=== PATIENT | female | born 1990 | race Caucasian/White ===

== ENCOUNTER → 2017-08-28 12:49 | Outpatient (CLI) | payer OTHER, SELFPAY ==
[2017-08-28 13:34] LABS: Basophils % 0.2 % (0.1-2.0); Eosinophils # 0.1 K/mm3 (0.0-0.4); Eosinophils % 0.8 % (0.1-12.0); Hematocrit 40.5 % (37.0-47.0); Hemoglobin 13.1 g/dL (12.2-16.2); Lymphocytes # 2.1 K/mm3 (0.7-4.5); Lymphocytes % 34.4 K/mm3 (10-50); Mean Corpuscular HGB Conc 32.3 g/dL (31.8-35.4); Mean Corpuscular Hemoglobin 30.7 pg (27.0-31.2); Mean Corpuscular Volume 95.1 fl (81-99); Mean Platelet Volume 8.3 fl (7.4-10.4); Monocytes # 0.2 K/mm3 (0.1-1.0); Monocytes % 3.7 % (1.7-9.3); Neutrophils # 3.8 K/mm3 (1.8-7.8); Neutrophils % 60.9 % (37.0-80.0); Platelet Count 189 K/mm3 (142-424); Red Blood Count 4.26 M/mm3 (4.20-5.40); Red Cell Distribution Width 14.1 % (11.5-17.5); White Blood Count 6.2 K/mm3 (4.8-10.8)
[2017-08-28 13:43] LABS: INR 0.97 (0.9-1.1); Prothrombin Time 10.5 seconds (9.4-11.8)
[2017-08-28 15:19] LABS: Amphetamine/Metha Screen,Urine Negative ng/mL (<1000); Barbiturates Screen,Urine Negative ng/mL (<200); Benzodiazepines Screen,Urine Negative ng/mL (200); Cannabinoid Screen,Urine Negative ng/mL (<50); Cocaine Screen,Urine Negative ng/g (<300); Methadone Screen,Urine Negative ng/mL (<300); Opiate Screen,Urine Negative ng/mL (<300); Phencyclidine Screen,Urine Negative ng/mL (<25)
[2017-08-28 15:25] LABS: Alanine Aminotransferase 282 U/L (12-78); Albumin Level 3.8 gm/dL (3.4-5.0); Alkaline Phosphatase 90 U/L (46-116); Aspartate Amino Transferase 170 U/L (15-37); Bilirubin,Total 0.4 mg/dL (0.2-1.0); Blood Urea Nitrogen 13 mg/dL (7-18); Calcium 8.6 mg/dL (8.5-10.1); Carbon Dioxide 31 mmol/L (21.0-32.0); Chloride 105 mmol/L (98-107); Creatinine,Serum 0.62 mg/dL (0.55-1.02); Estimated Glomerular Filt Rate 114 ml/min (>60); Ethyl Alcohol 0 mg/dL (0-99); GFR (African American) 138 ML/MIN (>60); Globulin 3.9 gm/dl (1.3-3.2); Glucose 103 mg/dL (74-106); Sodium 141 mmol/L (136-145); Total Protein,Serum 7.7 gm/dL (6.4-8.2)
[2017-08-29 08:23] LABS: HIV Screen 4th Generation wRfx Non Reactive (Non Reactive); Hepatitis B Surface Antigen Negative (Negative)
[2017-08-30 06:18] LABS: ALT (SGPT) P5P 250 IU/L (0-40); Alpha 2-Macroglobulins, Qn 257 mg/dL (110-276); Apolipoprotein A-1 199 mg/dL (116-209); Bilirubin, Total 0.3 mg/dL (0.0-1.2); GGT 47 IU/L (0-60); Haptoglobin 87 mg/dL (34-200); Necroinflammat Activity Grade A3-Severe activity (.); Necroinflammat Activity Score 0.82 (0.00-0.17)
[2017-08-31 10:52] LABS: Hep B Core Ab, Total Negative (Negative); Hepatitis B Surf Ab Quant <3.1 mIU/mL (Immunity>9.9)
== END ==
PROVIDERS: PCP Emergency Medicine; Visit Provider Nurse Practitioner
DX: B19.20 Unspecified viral hepatitis C without hepatic coma (principal)
CPT/HCPCS: 36415; 80053; 80305; 85025; 85610; 86703; 86704; 86706; 87340; 87522; G0432

== ENCOUNTER → 2021-07-27 11:33 | Outpatient (CLI) | payer MEDICAID, SELFPAY ==
[2021-07-27 12:13] LABS: Basophils # 0.1 K/mm3 (0-0.2); Eosinophils # 0.1 K/mm3 (0.0-0.4); Eosinophils % 0.7 % (0.1-12.0); Hematocrit 38.9 % (37.0-47.0); Hemoglobin 12.2 g/dL (12.2-16.2); Lymphocytes # 1.5 K/mm3 (0.7-4.5); Lymphocytes % 21.5 % (10-50); Mean Corpuscular HGB Conc 31.4 g/dL (31.8-35.4); Mean Corpuscular Volume 98.6 fl (81-99); Mean Platelet Volume 8.4 fl (7.4-10.4); Monocytes # 0.3 K/mm3 (0.1-1.0); Monocytes % 4.3 % (1.7-9.3); Neutrophils # 5.1 K/mm3 (1.8-7.8); Neutrophils % 72.4 % (37.0-80.0); Platelet Count 284 K/mm3 (142-424); Red Blood Count 3.94 M/mm3 (4.20-5.40); Red Cell Distribution Width 13.7 % (11.5-17.5); White Blood Count 7.1 K/mm3 (4.8-10.8)
[2021-07-27 12:33] LABS: Chloride 107 mmol/L (98-107); Potassium 4.3 mmoL/L (3.5-5.1); Sodium 141 mmol/L (136-145)
[2021-07-27 12:35] LABS: Alanine Aminotransferase 52 U/L (12-78); Alkaline Phosphatase 73 U/L (38-126); Anion Gap 11.3 mEq/L (5-15); Aspartate Amino Transferase 52 U/L (14-36); Bilirubin,Total 0.2 mg/dl (0.2-1.3); Blood Urea Nitrogen 14 mg/dl (7-17); Carbon Dioxide 27 mmol/L (22.0-30.0); Estimated Glomerular Filt Rate 73 ml/min (>60); GFR (African American) 88 ML/MIN (>60)
[2021-07-27 12:36] LABS: Albumin Level 4.2 g/dl (3.5-5.0); Albumin/Globulin Ratio 1.3 (1.1-1.8); Calcium 9.1 mg/dl (8.4-10.2); Globulin 3.2 g/dL (1.3-3.2); Glucose 85 mg/dl (74-100); Total Protein,Serum 7.4 g/dl (6.3-8.2)
[2021-07-27 12:52] LABS: Free T4 (Free Thyroxine) 1.05 ng/dl (0.78-2.19)
[2021-07-27 13:06] LABS: Thyroid Stimulating Hormone 0.28 uIU/mL (0.465-4.68)
[2021-07-27 13:09] LABS: HCG Qualitative, Serum Negative (Negative)
[2021-07-28 08:14] LABS: Hep A Ab, IgM Negative (Negative); Hepatitis B Core Antibody IgM Negative (Negative); Hepatitis B Surface Antigen Negative (Negative); Hepatitis C Antibody >11.0 s/co ratio (0.0-0.9); Thyroid Peroxidase Antibodies <8 IU/mL (0-34)
== END ==
PROVIDERS: PCP Internal Medicine Adolescent Medicine; Visit Provider Nurse Practitioner Family
DX: R22.1 Localized swelling, mass and lump, neck (principal); R76.8 Other specified abnormal immunological findings in serum; Z30.011 Encounter for initial prescription of contraceptive pills
CPT/HCPCS: 36415; 80053; 80074; 84439; 84443; 84703; 85025; 86376; 87522

== ENCOUNTER → 2021-08-01 15:16 | Outpatient (CLI) | payer OTHER, SELFPAY ==
--- NOTE | 2021-08-01 15:18 | US_ITS ---
FINAL REPORT CLINICAL HISTORY: NECK MASS FINDINGS: THYROID ULTRASOUND The right lobe of the thyroid measures 5.4 x 4.3 x 3.3 cm. The left lobe of the thyroid measures 4.9 x 2.1 x 1.4 cm. A dominant right thyroid nodule measures 4.0 x 3.0 x 2.6 cm is solid and isoechoic consistent with a TI-RADS 3. A 2nd right thyroid nodule measures 1.8 x 1.3 cm. The single left thyroid nodule is mixed cystic and solid with macrocalcifications and measures 3.8 x 1.4 x 1.3 cm consistent with a TI-RADS 3. IMPRESSION: Bilateral TI-RADS 3 nodules. Recommend ultrasound-guided FNA of each. Reviewed, Interpreted and Dictated by Jose Bansal MD Transcribed by Kalpesh Long Authenticated by Jose Bansal MD on 08/01/2021 04:58:20 PM [facility]
== END ==
PROVIDERS: PCP Internal Medicine Adolescent Medicine; Visit Provider Nurse Practitioner Family
DX: R22.1 Localized swelling, mass and lump, neck (principal)
CPT/HCPCS: 76536

== ENCOUNTER → 2021-08-17 07:44 | Outpatient (CLI) | payer OTHER, SELFPAY ==
--- NOTE | 2021-08-17 07:50 | US_ITS ---
FINAL REPORT CLINICAL HISTORY: THYROID NODULE-- bilat rt/lt fna gopi woodall FINDINGS: The skin of the neck was prepped and draped in the usual sterile fashion. The skin was anesthetized with 1% lidocaine without epinephrine. Utilizing ultrasound guidance, the right thyroid nodule was initially targeted. 3 biopsies were obtained of the large right thyroid nodule. Secondly, the left thyroid nodule was targeted. Again, 3 fine-needle biopsies were obtained of the left thyroid nodule. The patient tolerated the procedure well without complications. IMPRESSION: Ultrasound-guided fine-needle aspiration of bilateral thyroid nodules. Reviewed, Interpreted and Dictated by Alfred Garcia III, MD Transcribed by MARTA Morris Authenticated by Alfred Garcia III, MD on 08/17/2021 09:22:46 AM [facility]
== END ==
PROVIDERS: PCP Internal Medicine Adolescent Medicine; Visit Provider Nurse Practitioner Family
DX: E04.1 Nontoxic single thyroid nodule (principal)
CPT/HCPCS: 10005; 10006; 76536; 76942

== ENCOUNTER → 2021-11-16 10:54 | Outpatient (CLI) | payer OTHER, SELFPAY ==
--- NOTE | 2021-11-16 10:57 | US_ITS ---
FINAL REPORT CLINICAL HISTORY: .3 passes done per manny woodall sent with thyroseq for dr morales this was a repeat for atypical cells FINDINGS: Ultrasound guided thyroid biopsy. HISTORY: Right thyroid mass. PROCEDURE: After informed consent was obtained and a time-out was performed, the patient was prepped and draped in usual sterile fashion over the left neck. Utilizing local anesthesia and sterile technique with a 25-gauge needle, access to lesion was obtained. Three passes were made and placed in Thyroseq per Dr. Morales's orders. The patient tolerated procedure well and left the department in good condition. IMPRESSION: Status post ultrasound guided biopsy of thyroid without immediate complication. Films reviewed , interpreted and dictated by Dr. Garcia. Transcribed by Manny Martinez PA-C. Reviewed, Interpreted and Dictated by Alfred Garcia III, MD Transcribed by MARTA Felton Authenticated by Alfred Garcia III, MD on 11/18/2021 08:01:[address] [facility]
== END ==
PROVIDERS: PCP Internal Medicine Adolescent Medicine; Visit Provider Student in an Organized Health Care Education/Training Program
DX: E04.9 Nontoxic goiter, unspecified (principal)
CPT/HCPCS: 10005; 76536

== ENCOUNTER → 2021-12-12 15:47 | Outpatient (CLI) | payer OTHER, SELFPAY ==
[2021-12-12 17:39] LABS: Free T4 (Free Thyroxine) 1.08 ng/dl (0.78-2.19)
[2021-12-12 17:43] LABS: Thyroid Stimulating Hormone 0.11 uIU/mL (0.465-4.68)
== END ==
PROVIDERS: PCP Nurse Practitioner Family; Visit Provider Student in an Organized Health Care Education/Training Program
DX: E04.9 Nontoxic goiter, unspecified (principal); J34.89 Other specified disorders of nose and nasal sinuses
CPT/HCPCS: 36415; 84439; 84443

== ENCOUNTER → 2022-01-21 08:36 | Outpatient (CLI) | payer OTHER, SELFPAY ==
[2022-01-21 08:40] LABS: MANUAL DIFFERENTIAL MANUAL DIFFERENTIAL (MANUAL DIFF)
[2022-01-21 08:50] LABS: Basophils # 0.1 K/mm3 (0-0.2); Basophils % 1.1 % (0.1-2.0); Eosinophils % 0.4 % (0.1-12.0); Hematocrit 43.1 % (37.0-47.0); Hemoglobin 13.3 g/dL (12.2-16.2); Lymphocytes # 1.6 K/mm3 (0.7-4.5); Lymphocytes % 23.1 % (10-50); Mean Corpuscular Hemoglobin 30.9 pg (27.0-31.2); Mean Corpuscular Volume 99.8 fl (81-99); Mean Platelet Volume 8.5 fl (7.4-10.4); Monocytes # 0.3 K/mm3 (0.1-1.0); Monocytes % 3.8 % (1.7-9.3); Neutrophils # 5.1 K/mm3 (1.8-7.8); Neutrophils % 71.7 % (37.0-80.0); Platelet Count 275 K/mm3 (142-424); Red Blood Count 4.32 M/mm3 (4.20-5.40); Red Cell Distribution Width 12.6 % (11.5-17.5); White Blood Count 7.1 K/mm3 (4.8-10.8)
[2022-01-21 09:26] LABS: Chloride 103 mmol/L (98-107); Potassium 3.6 mmoL/L (3.5-5.1); Sodium 136 mmol/L (136-145)
[2022-01-21 09:29] LABS: Alanine Aminotransferase 47 U/L (12-78); Albumin/Globulin Ratio 1.1 (1.1-1.8); Alkaline Phosphatase 72 U/L (38-126); Anion Gap 9.6 mEq/L (5-15); Aspartate Amino Transferase 46 U/L (14-36); Bilirubin,Total 0.4 mg/dl (0.2-1.3); Blood Urea Nitrogen 9 mg/dl (7-17); Calcium 9.8 mg/dl (8.4-10.2); Carbon Dioxide 27 mmol/L (22.0-30.0); Estimated Glomerular Filt Rate 83 ml/min (>60); GFR (African American) 100 ML/MIN (>60); Globulin 3.5 g/dL (1.3-3.2); Glucose 93 mg/dl (74-100); Total Protein,Serum 7.5 g/dl (6.3-8.2)
[2022-01-21 09:43] LABS: Lymphocytes % 23 % (10-50); Monocytes % 6 % (2-9); Neutrophils % 71 % (42-76); Platelet Estimate Normal; RBC Morphology Normal; Total Cells Counted 100
[2022-01-23 10:56] LABS: HCG Qualitative, Serum Negative (Negative)
== END ==
PROVIDERS: PCP Nurse Practitioner Family; Visit Provider Student in an Organized Health Care Education/Training Program
DX: Z01.818 Encounter for other preprocedural examination (principal); Z20.822 Contact with and (suspected) exposure to COVID-19; E04.9 Nontoxic goiter, unspecified
CPT/HCPCS: 36415; 80053; 84703; 85007; 85014; 85018; 85048; 85049; C9803; U0003; U0005

== ENCOUNTER 2022-01-25 06:02 | Day surgery (SDC) | payer OTHER, SELFPAY ==
[2022-01-25] VITALS (12 sets, daily range): BP systolic 120–141; BP diastolic 75–90; PULSE 85–110; RESP 12–18; TEMP 36.2–38; O2SAT 96–100; BMI 26.7
--- NOTE | 2022-01-25 06:20 | ECG_ITS ---
APPROVED REPORT Exam: Resting ECG HR:78 bpm ECG Measurements Heart Rate 78 AXES OK 148 P 11 QRSd 80 QRS 71 QT 361 T 57 QTc 394 Conclusion SINUS RHYTHM NORMAL ECG UNCONFIRMED REPORT Electronically signed by : Harvinder Long MD 01/25/2022 17:27:10
--- NOTE | 2022-01-25 08:28 | HMH.ANESCL ---
[facility] Anesthesia Checklist - Structural Data Admitted From: Home Planned Operative Procedure/s: [place] thyroidectomy Consent for Planned Operative Procedure(s) Verified: Yes - Additional verifications Anesthesia Reactions: No Hx Blood Transfusions: No Blood Transfusion Reaction: No - Airway Assessment C-Spine Mobility Assessed: Yes TMJ Mobility Assessed: Yes Dentition: Poor Dentition - Neurological Assessment Level of Consciousness: Awake, Appropriate - Anesthesia Plan Anesthesia Risk discussed: Yes Anesthesia Plan: Verified ASA Class: II Anesthesia Type: General [facility] History I have reviewed the patient's past medical history: Yes Medical History: Denies:: Cancer, Diabetes Mellitus Type 1, Diabetes Mellitus Type 2, Internal Pacemaker, MRSA, Seizures *Have you ever received a pneumonia vaccine?: No *Have you received a flu vaccine this season?: No Other Medical History: Reports: Other (History of drug abuse). Denies: Blood Transfusion Reaction Anesthesia experience/problems:: none Other Surgeries: Yes: (x 2), Other. No: Pacemaker Amputation: No Fractures: No - *Social History Last grade of school completed: High school graduate Smoking Status: Current every day smoker Tobacco Type: cigarettes # Packs/Day (cigarettes): 1 Alcohol Intake: former Alcohol Intake Frequency:: other Substance Use Type: marijuana, heroin, methamphetamine *Occupational Status:: employed Housing: house *Travel in the last 8 weeks: None Family Hx:: Diabetes, Stroke
--- NOTE | 2022-01-25 10:22 | HMH.ANESI ---
[facility] Anesthesia Record Part I Intake, IV Amount: 1,600 Estimated blood loss (mL): 10 Urine output (mL): 0 Blood Pressure: 139/90 SaO2: 96 Pulse Rate: 100 Respiratory Rate: 12 Temperature: 98.6 F Patient is:: Awake, Stable Stable to PACU at:: 10:15
--- NOTE | 2022-01-25 10:22 | HMH.OPNOTE ---
Date of procedure: 01/25/22 Pre-op Diagnosis:: right thyroid nodule Post-op Diagnosis:: same Procedure performed:: right hemithyroidectomy Surgeon:: Ernie Morales MD Anesthesia: GETA Estimated blood loss (mL): 15 Operative findings:: right thyroid nodules Operative note:: The patient was brought to the OR, laid in the supine position, and general anesthesia with a Nims nerve monitoring endotracheal tube was induced. Nerve monitor was set up and confirmed to be working appropriately. Patient was prepped and draped in usual fashion. Lidocaine with epinephrine 1-100,000 was injected below the incision site. I dissected through the skin, subcutaneous tissues, and platysma. The strap muscles were identified at the midline raphae. The strap muscles were divided at the raphae. I then began to dissect the strap muscles off of the right side of the thyroid. I isolated the superior pedicle and was taken down with a harmonic. We then came inferiorly again freeing thyroid from the surrounding tissue and strap muscles. I then began to roll the thyroid in a lateral to medial fashion out of the patient's neck. The recurrent laryngeal nerve was identified and preserved during this process. I dissected through Chacko's ligament and dissected the lobe off the trachea. The thyroid was divided at the midline isthmus and then sent for permanent pathology. Patient's neck was then thoroughly irrigated out. Hemostasis was achieved with bipolar cautery. The recurrent laryngeal nerve stimulated both proximally and distally at the end of the case. 15 B[place]udian drain was fashioned in the patient's neck. The incision was then closed in 2 layers. They were then turned back over to anesthesia to be awoken and extubated. Condition: stable Disposition: PACU Complications:: none
--- NOTE | 2022-01-25 11:13 | PC.NURSE ---
Dr Morales at bedside 1059 to speak with pt and assess incision and drain. No further orders at this time.
--- NOTE | 2022-01-26 07:19 | HMH.ANESII ---
[facility] Anesthesia Record Part II Discharge Time: 10:45 Destination: Home PACU nurse assessment reviewed?: Yes Patient Condition:: Good Anesthesia Complications:: None Swallowing reflex intact?: Yes Cyanosis?: No Blood Pressure: 120/75 Pulse Rate: 98 Temperature: 98 F Mental Status: Alert & Oriented Pain level:: 2 Nausea and/or vomitting:: None Intake, IV Amount: 0
[2022-01-26 07:20] VITALS: BP 120/75; PULSE 98; TEMP 36.6
== END 2022-01-25 11:32 | disposition home or self-care (01) ==
LOC: OR 06:04
PROVIDERS: PCP Nurse Practitioner Family; Visit Provider Student in an Organized Health Care Education/Training Program
PROC: (CPT 60220; principal; 2022-01-25 07:30)
DX: C73 Malignant neoplasm of thyroid gland; E04.1 Nontoxic single thyroid nodule; Z72.0 Tobacco use
CPT/HCPCS: 60220; 93005; 96374; J2405

== ENCOUNTER 2022-01-26 16:33 | Outpatient (CLI) | payer OTHER, SELFPAY ==
--- NOTE | 2022-01-26 17:06 | PC.NURSE ---
1650- JAYA drain removed without difficulty from below thyroid excision site. approx 10ml in bulb. site covered with telfa/tegaderm dsg. Pt tolerated well.
== END 2022-01-26 17:18 | disposition home or self-care (01) ==
LOC: OBOUT 16:35
PROVIDERS: PCP Nurse Practitioner Family; Visit Provider Student in an Organized Health Care Education/Training Program
DX: Z48.03 Encounter for change or removal of drains (principal)
CPT/HCPCS: G0463

== ENCOUNTER 2022-02-13 14:37 | Emergency (ER) | payer OTHER, SELFPAY ==
[2022-02-13 15:20] VITALS: BP 132/82; PULSE 103; RESP 18; TEMP 36.8; O2SAT 100; BMI 23.6
--- NOTE | 2022-02-13 15:34 | HMH.EDUTC ---
[facility] Disposition Clinical Impression: Viral syndrome Disposition: Home, Self-Care Condition on Discharge: Good Instructions: DI for Viral Syndrome, DI for COVID-19 (Suspected or Confirmed ), Preventing the Spread of Coronavirus Discharge Instructions Additional Instructions: *Monitor Temp, Over the counter Motrin or Tylenol as directed/as needed Tylenol every 4 hours and Motrin every 6 hours (as long as your family doctor has told you that you can take it) for fever or pain. and straight to ER if unable to lower temp less than 101.0 after medication given *Warm salt water gargles may help to soothe the throat *Throat Lozenges *Warm fluids like tea with honey may help to soothe the throat *Sleep elevated *Humidifier/Vaporizer Follow up IMMEDIATELY for new or worsening symptoms or no Noticeable improvement over the next 48-72 hours. 911 for difficulty breathing or swallowing You were tested for today for COVID19 your test result should be back in the next 24-48 hours, you may Check your results on the [facility] My Health Portal Make sure to take your Vitamins Vit. C Vit D and Zinc if you can take them Referrals: Harvinder Long MD [Primary Care Provider] - As needed Forms: Work/School Release Time of Disposition: 15:40 Medical Decision Making - Siva Inquiry Pt receiving controlled substance: No Siva was queried for this patient: No Vital Signs: 02/13/22 15:20 Temperature 98.3 F Temperature Source Oral Pulse Rate [Right Brachial] 103 H Respiratory Rate 18 Blood Pressure [Right Arm] 132/82 Blood Pressure Mean [Right Arm] 98 Blood Pressure Source [Right Arm] Automatic Cuff Blood Pressure Position [Right Arm] Sitting 02 Sat by Pulse Oximetry 100 Oxygen Delivery Method Room Air Orders (Tests/Meds): ORDERS Category Date Time Status Covid-19 Nasal PCR ([facility]) Routine Lab 02/13/22 15:12 Ordered [facility] HPI - General Stated complaint: covid test Time Seen by Provider: 02/13/22 15:35 Mode of Arrival: Ambulatory Source of Information: Patient Limitations: No Limitations Description of Symptoms (Recalled from Triage Doc. by RN): PATIENT C/O FEVER, CHILLS, WEAKNESS, AND LOSS OF TASTE AND SMELL SINCE YESTERDAY HEENT Symptoms (Recalled from RN notes): Yes Resp Symptoms (Recalled from RN notes): No Skin Symptoms (Recalled from RN notes): No MS Symptoms (Recalled from RN notes): No Functional Status (Recalled from RN notes): WNL - History of Present Illness Provider Complaint: Patient states that she was recently around a coworker that she thinks may have been postive for COVID States that she has been having bodyache, chills, fatigue and her taste and smell has been off so today she came in wanting to get tested for COVID - Related Data Home Medications Medication Instructions Recorded Confirmed levonorgestrel-ethinyl estradiol 1 tab PO DAILY tab 10/26/21 02/13/22 0.1 mg-20 mcg tablet Allergies Allergy/AdvReac Type Severity Reaction Status Date / Time cefaclor [From [facility]] Allergy Unknown Verified 01/09/22 16:05 - Worker's Comp Is this a Worker's Comp case?: No [facility] History - Hepatitis A Screen Attestation statement:: This patient has been screened for Hepatitis A risk factors. I have reviewed the patient's past medical history: Yes Medical History: Denies:: Cancer, Diabetes Mellitus Type 1, Diabetes Mellitus Type 2, Internal Pacemaker, MRSA, Seizures Other Medical History: Reports: Other (History of drug abuse). Denies: Blood Transfusion Reaction Other Surgeries: Yes: (x 2), Other. No: Pacemaker Amputation: No Fractures: No Comment: Patient reports she is scheduled for thyroidectomy this month secondary to thyroid cancer - Social History Smoking Status: Current every day smoker Tobacco Type: cigarettes # Packs/Day (cigarettes): 1 Alcohol Intake: never Alcohol Intake Frequency:: other Substance Use Type: marijuana, heroin, methamphetamine Occupational S
[2022-02-13 15:40] VITALS: BP 132/82; PULSE 103; RESP 18; TEMP 36.8; O2SAT 100
== END 2022-02-13 15:45 | disposition home or self-care (01) ==
PROVIDERS: Emergency Provider Nurse Practitioner; PCP Internal Medicine Adolescent Medicine
DX: U07.1 COVID-19 (principal)
CPT/HCPCS: 99212; C9803; G0463; U0003; U0005

== ENCOUNTER 2023-07-19 06:50 | Emergency (ER) | payer OTHER, SELFPAY ==
--- NOTE | 2023-07-19 06:53 | HMH.EDGENADL ---
Discharge Plan Disposition Patient Disposition: Xfer Other Prescriptions Prescriptions: No Action nifedipine 30 mg tablet extended release 30 mg PO DAILY Qty: 30 0RF Referrals Follow up/Referrals: Harvinder Long MD [Primary Care Provider] - See instructions Clinical Impressions Clinical Impression: Methamphetamine use Preeclampsia Qualifiers: Trimester: third trimester Qualified Code(s): O14.93 - Unspecified pre-eclampsia, third trimester No care in current Qualifiers: Trimester: third trimester Qualified Code(s): O09.33 - Supervision of with insufficient care, third trimester Discharge ED Provider: Hayes Esparza General Adult HPI General Chief complaint: Medical Clearance Stated complaint: medical clearance Time Seen by Provider: 07/19/23 06:51 History of Present Illness HPI narrative: 32-year-old female presents in police custody for medical clearance. She reports that she is approximately 8 months , has not had any care. She uses meth and heroin frequently. She denies any current concerns such as abdominal pain vaginal bleeding vaginal discharge chest pain abdominal pain shortness of breath etc. She has had 2 prior pregnancies, both C-sections. She says that she has an appointment to see an DIRECTOR OF STRATEGIC PROGRAMS next week, but has not yet established care. She is not sure when her last menstrual period was. Related Data Previous Rx's Medication Instructions Recorded nifedipine 30 mg tablet,extended 30 mg PO DAILY #30 tabs 07/19/23 release Allergies Allergy/AdvReac Type Severity Reaction Status Date / Time cefaclor [From [facility]] Allergy Unknown Verified 03/15/22 16:13 [facility] Disclaimer: The information contained in this section may have been updated after the patient was seen, as this information can be updated by other users. Surgical History (Updated 07/19/23 @ 16:29 by Halle Siddiqui DO) H/O thyroidectomy Previous section Social History (Updated 07/19/23 @ 15:16 by Sade Casey RN) Smoking Status: Current every day smoker tobacco type: cigarettes packs per day: 1 alcohol intake: never substance use type: marijuana, heroin and methamphetamine current occupational status: unemployed Travel in the last 8 weeks: None housing: house current occupation: [employer] caffeine: Yes ROS Obtained: Yes All systems reviewed & no additional complaints except as documented Physical Exam General General appearance: alert and in no apparent distress Head Head exam: atraumatic and normocephalic Eye Eye exam: Present normal appearance, PERRL and EOMI ENT ENT exam: Present normal oropharynx and normal external ear exam Neck Neck exam: Present normal inspection and full ROM Chest Chest inspection: Present normal inspection and symmetric chest wall rise; Absent tenderness Respiratory Respiratory exam: Present normal lung sounds bilaterally; Absent respiratory distress Cardiovascular Cardiovascular exam: Present regular rate and normal rhythm Abdominal Exam Abdominal exam: Present soft and distention (Gravid uterus noted); Absent tenderness or guarding Extremities Exam Extremities exam: Present normal inspection; Absent edema or joint swelling Back Exam Back exam: Present normal inspection; Absent tenderness Neurological Exam Neurological exam: Present alert and oriented X3; Absent motor sensory deficit Psychiatric Psychiatric exam: Present normal affect and normal mood Skin Skin exam: Present warm, dry and normal color Lymphatic Lymphatic Findings: no adenopathy Medical Decision Making Medical Records Medical records reviewed: Yes I reviewed the patient's medical records. Siva Inquiry Pt receiving controlled substance: No Siva was queried for this patient: No Vital Signs: 07/19/23 07:03 07/19/23 07:14 Temperature 98.6 F 98.6 F Temperature Source Oral Oral Pulse Rate 120 H Pulse Rate [Left Rad
--- NOTE | 2023-07-19 06:58 | PC.NURSE ---
Dr. Esparza at bedside with u/s
[2023-07-19 07:03] VITALS: BP 142/96; PULSE 120; RESP 20; TEMP 37; O2SAT 100; BMI 22.0
--- NOTE | 2023-07-19 07:10 | PC.NURSE ---
Dr. Esparza s/w Dr. Siddiqui. States pt is medically cleared from ER standpoint and pt will be transferred to OB for evaluation.
--- NOTE | 2023-07-19 07:12 | PC.NURSE ---
Maryse Cash RN gave repot to Evie Harrison RN. Katie at registration notified of this change.
[2023-07-19 07:14] VITALS: BP 142/96; PULSE 120; RESP 20; TEMP 37; O2SAT 100
== END 2023-07-19 07:16 | disposition other institution (70) ==
LOC: ER 06:55
PROVIDERS: Emergency Provider Emergency Medicine; PCP Internal Medicine Adolescent Medicine
DX: O99.323 Drug use complicating pregnancy, third trimester (principal); F11.129 Opioid abuse with intoxication, unspecified; F15.129 Other stimulant abuse with intoxication, unspecified; O99.333 Smoking (tobacco) complicating pregnancy, third trimester; O14.93 Unspecified pre-eclampsia, third trimester; O09.33 Supervision of pregnancy with insufficient antenatal care, third trimester; Z3A.33 33 weeks gestation of pregnancy; F17.210 Nicotine dependence, cigarettes, uncomplicated
CPT/HCPCS: 99285

== ENCOUNTER 2023-07-19 10:06 | Observation (INO) | payer OTHER, SELFPAY ==
[2023-07-19] VITALS (9 sets, daily range): BP systolic 108–151; BP diastolic 59–93; PULSE 102; RESP 18; TEMP 37.1; O2SAT 100; BMI 29.9
--- NOTE | 2023-07-19 07:41 | US_ITS ---
PROCEDURE: US OB BPP W/FET-MAT S/D CLINICAL INDICATION: No care COMPARISON: No exams were available for comparison FINDINGS: Transabdominal sonographic images of the pelvis were obtained. Her established due date is unknown, no care. Single viable intrauterine gestation. Cephalic position. Placenta: Posterolaterallyplacenta grade 2-3. There is an average amount of fluid. SHELL 9.19 cm, MVP 3.64 cm. Incomplete survey performed and was unremarkable on the submitted images as in PACS. No discrete anomalies identified on survey imaging by technologist. Active fetus. Three-vessel cord. 4- chamber heart noted. LVOT, RVOT, appear normal. Survey of brain & ventricles Unremarkable. Face and neck survey unremarkable. Profile, nasion, lips and nose appeared normal. Diaphragm and chest views unremarkable. Abdomen: Both kidneys noted and unremarkable. Stomach and bladder noted and satisfactory. Spine: Survey of the spine satisfactory with no anomalies identified nor imaged. Cervical, thoracic, lower spine appear normal. Both arms and legs noted. Amniotic Fluid: Adequate. Measurements: Average ultrasound age 35weeks 5days. Estimated due date by ultrasound age 0108/18/2023. Estimated weight 2,575g, 5 lbs 11oz BPD = 35weeks 4days HC = 36weeks 2days AC = 34weeks 0 days FL = 36weeks 4days Heart Rate = 143bpm HC/AC is 1.07 FL/BPD is 0.81 FL/AC is 0.24 SD ratio 2.06-2.22 IMPRESSION: 1. Viable fetus in the cephalic presentation with a posterolateral placenta grade 2-3. 2. The fluid is within normal limits with an amniotic fluid index of 9.19 cm. 3. Fetus is active. 4. Limited anatomical scan appears normal. 5. Average ultrasound age is 35 weeks 5 days. Dictated by: Sheng Stewart MD 07/19/2023 16:09 Sheng Stewart MD in OV 07/19/2023 16:09
[2023-07-19 07:50] LABS: Microscopic, Urine URINE MICROSCOPIC (MICROSCOPIC)
[2023-07-19 07:58] LABS: Appearance,Urine CLEAR (Clear); Bilirubin,Urine Negative (Negative); Blood, Urine Negative (Negative); Color,Urine YELLOW (Yellow); Glucose,Urine (UA) Negative (Negative); Ketones,Urine Negative (Negative); Leukocyte Esterase,Urine Negative (Negative); Nitrate,Urine Negative (Negative); PH,Urine 6.5 (5.0-8.5); Protein,Urine 1+ (Negative); Specific Gravity, Urine 1.025 (1.005-1.030); Urobilinogen,Urine 0.2 EU/dl (0.2)
[2023-07-19 08:09] LABS: Creatinine,Urine Random 158 mg/dL (Not Estab.)
[2023-07-19 08:12] LABS: Benzodiazepines Screen,Urine Negative ng/ml (<200)
[2023-07-19 08:14] LABS: Barbiturates Screen,Urine Negative ng/ml (<200); Methadone Screen,Urine Negative ng/ml (<300)
[2023-07-19 08:15] LABS: Cannabinoid Screen,Urine Positive ng/ml (<50); Cocaine Screen,Urine Negative ng/ml (<300)
[2023-07-19 08:16] LABS: Opiate Screen,Urine Negative ng/ml (<300)
[2023-07-19 08:17] LABS: Phencyclidine Screen,Urine Negative ng/ml (<25)
[2023-07-19 08:26] LABS: Bacteria,Urine 1+ /lpf; Hyaline Casts,Urine Occasional #/lpf (0); Mucus,Urine Trace /lpf
[2023-07-19 09:32] LABS: Basophils % 0.2 % (0.1-2.0); Eosinophils % 0.2 % (0.1-12.0); Hematocrit 29.5 % (37.0-47.0); Lymphocytes # 1.6 K/mm3 (0.7-4.5); Lymphocytes % 20.5 % (10-50); Mean Corpuscular HGB Conc 34.1 g/dL (31.8-35.4); Mean Corpuscular Hemoglobin 29.3 pg (27.0-31.2); Mean Platelet Volume 9.2 fl (7.4-10.4); Monocytes # 0.3 K/mm3 (0.1-1.0); Monocytes % 4.3 % (1.7-9.3); Neutrophils # 5.8 K/mm3 (1.8-7.8); Neutrophils % 74.8 % (37.0-80.0); Platelet Count 283 K/mm3 (142-424); Red Blood Count 3.43 M/mm3 (4.20-5.40); Red Cell Distribution Width 13.8 % (11.5-17.5); White Blood Count 7.7 K/mm3 (4.8-10.8)
[2023-07-19 09:40] LABS: Chloride 104 mmol/L (98-107); Potassium 3.8 mmoL/L (3.5-5.1); Sodium 132 mmol/L (136-145)
[2023-07-19 09:42] LABS: Blood Urea Nitrogen 14 mg/dl (7-17); Creatinine Clearance Estimated 155 mL/min (50-200); Estimated Glomerular Filt Rate 96 ml/min (>60); GFR (African American) 116 ML/MIN (>60)
[2023-07-19 09:43] LABS: Alanine Aminotransferase 30 U/L (12-78); Albumin Level 3.2 g/dl (3.5-5.0); Albumin/Globulin Ratio 0.9 (1.1-1.8); Alkaline Phosphatase 260 U/L (38-126); Anion Gap 7.8 mEq/L (5-15); Aspartate Amino Transferase 43 U/L (14-36); Bilirubin,Total 0.2 mg/dl (0.2-1.3); Calcium 8.5 mg/dl (8.4-10.2); Carbon Dioxide 24 mmol/L (22.0-30.0); Globulin 3.4 g/dL (1.3-3.2); Glucose 84 mg/dl (74-100); Total Protein,Serum 6.6 g/dl (6.3-8.2)
[2023-07-19] MEDS: BETAMETHASONE ACET/PHOS 6MG/ML 5ML MDV 12 MG IM (10:22)
[2023-07-19] MEDS: LACTATED RINGERS 1000ML 1,000 ML 125 ML IV (10:23)
[2023-07-19 10:26] LABS: Uric Acid 3.9 mg/dl (2.5-6.2)
[2023-07-19] MEDS: NIFEdipine 10MG CAPSULE 30 MG PO (13:34)
--- NOTE | 2023-07-19 16:06 | EXP.PN ---
Subjective *Date: 07/19/23 *Time: 16:06 Interval history: Arlin Tang is a 32 yo who presented to the ED for medical clearance today and was noted to be 8+ months . I was called for medical clearance for incarceration from an obstetrical standpoint and the patient was brought to labor and delivery. -On arrival her blood pressure was 150s over 100s. Patient denies a history of -induced hypertension or preeclampsia. - complicated by: No care, methamphetamine abuse, heroin abuse, THC use, tobacco use, history of x 2, and a history of thyroid removal. -Reports she last used meth today and last used heroin yesterday. Reports that she has not been using heroin for a long and does not use it every day. Denies any alcohol use with this . States that she smokes 1 pack of day. -Reports her warrant for the reason she got arrested was for not paying child support. Her dad has 2 of her first 2 children. -Denies any , , delivery, or complications with her first 2 pregnancies. Denies history of gestational diabetes. -Her first was for failure to dilate past 2 cm and her second was a scheduled repeat. -Denies any surgeries aside from her C-sections Exam Data for Last 24 hours Vital signs and Labs for Last 24 Hours: Temp Pulse Resp BP Pulse Ox O2 Del Method 98.7 F 102 H 18 108/59 L 100 Room Air 07/19/23 08:22 07/19/23 08:22 07/19/23 08:22 07/19/23 14:40 07/19/23 08:22 07/19/23 08:22 Laboratory Results - last 24 hr 07/19/23 07:40: Urine Color Yellow, Urine Appearance Clear, Urine pH 6.5, Ur Specific [place] 1.025, Urine Protein 1+, Urine Glucose (UA) Negative, Urine Ketones Negative, Urine Blood Negative, Urine Nitrate Negative, Urine Bilirubin Negative, Urine Urobilinogen 0.2, Ur Leukocyte Esterase Negative, Urine RBC None, Urine WBC 3-5, Ur Squamous Epith Cells 5-10, Urine Bacteria 1+, Hyaline Casts Occasional, Urine Mucus Trace, Urine Creatinine 158, Urine Total Protein 104.0 H, Urine Opiates Screen Negative, Urine Methadone Screen Negative, Ur Barbituates Screen Negative, Ur Phencyclidine Scrn Negative, Ur Amphetamines Screen TNP, U Benzodiazepines Scrn Negative, Urine Cocaine Screen Negative, U Marijuana (THC) Screen Positive H 07/19/23 09:10: WBC 7.7, RBC 3.43 L, Hgb 10.0 L, Hct 29.5 L, MCV 86.0, MCH 29.3, MCHC 34.1, RDW 13.8, Plt Count 283, MPV 9.2, Neut % (Auto) 74.8, Lymph % (Auto) 20.5, [place] % (Auto) 4.3, Eos % (Auto) 0.2, Baso % (Auto) 0.2, Neut # (Auto) 5.8, Lymph # (Auto) 1.6, [place] # (Auto) 0.3, Eos # (Auto) 0.0, Baso # (Auto) 0.0, Sodium 132 L, Potassium 3.8, Chloride 104, Carbon Dioxide 24, Anion Gap 7.8, BUN 14, Creatinine 0.70, Estimated Creat Clear 155, Estimated GFR 96, Est GFR ( Amer) 116, Glucose 84, Uric Acid 3.9, Calcium 8.5, Total Bilirubin 0.2, AST 43 H, ALT 30, Alkaline Phosphatase 260 H, Total Protein 6.6, Albumin 3.2 L, Globulin 3.4 H, Albumin/Globulin Ratio 0.9 L, Blood Type O Positive, Antibody Screen Negative I & O for Last 24 hours: Intake & Output 07/16/23 07/17/23 07/18/23 07/19/23 23:59 23:59 23:59 23:59 Weight 191 lb Narrative: General: patient is alert oriented in no acute distress and responds appropriately to questions. Sitting up in the bed and doing well HEENT: NCAT, EOMI, moist mucous membranes, neck supple with full ROM Cardiovascular: Tachycardia, +S1/S2, no murmurs or rubs Pulmonary: Clear to auscultation bilaterally, nonlabored breathing, symmetric chest rise Abdominal: Fundus appropriate for gestation, firm, and no tenderness noted Extremities: +1 edema, no tenderness or cyanosis noted Skin: Normal turgor, intact, warm. Negative for erythema, pallor, petechia, or lesions Neurologic: Negative for sensory or motor deficit Psychiatric: Normal affect, normal thought process, good judgment and insight, no depression or anxious mood appreciated. Constitutional Constitutional: no acute distress *Routine HEENT Exam Head: Present normocephalic Eye: Present EOMI and PERRL ENT: Present mucous membranes moist *Routine Neck Exam Neck: Present supple; Absent lymphadenopathy *Routine Respiratory Exam Respiratory: Present CTA bilaterally *Routine Cardiovascular Exam Cardiovascular: Present RRR *Routine Abdominal Exam Abdominal: Present soft and normoactive bowel sounds; Absent tenderness *Routine Extremities Exam Extremities: Absent cyanosis, clubbing or edema *Routine Skin Exam Skin: Present warm; Absent rash *Routine Neurological Exam Neurological: Present alert and oriented X3 Assessment and Plan *Assessment and plan (1) Thyroid goiter: Status: Acute Category: Medical Code(s): E04.9 - Nontoxic goiter, unspecified (2) Heroin use affecting : Status: Acute Category: Medical Code(s): O99.320 - Drug use complicating , unspecified trimester; F11.90 - Opioid use, unspecified, uncomplicated (3) Methamphetamine use: Status: Acute Category: Medical Code(s): F15.10 - Other stimulant abuse, uncomplicated (4) Preeclampsia: Status: Acute Category: Medical Code(s): O14.90 - Unspecified pre-eclampsia, unspecified trimester (5) 35 weeks gestation of : Status: Acute Category: Medical Code(s): Z3A.35 - 35 weeks gestation of (6) H/O thyroidectomy: Status: Acute Category: Surgical Code(s): E89.0 - Postprocedural hypothyroidism Plan #35 weeks -NST reactive -BPP 8 out of 8 -Ultrasound today revealed a average gestational age of 35 weeks and 5 days with an TODD of 08/18/2023. EFW was 2575 g, 5 pounds 11 ounces. -Limited anatomy appears complete -Fetus was cephalic with a posterior lateral placenta, grade 2-3 -MVP: 3.64. SHELL: 9.19 cm -New OB labs were obtained -Betamethasone ordered for possible delivery prior to 37 weeks with for dating #Preeclampsia -Unclear if blood pressures are elevated secondary to methamphetamine abuse or -induced hypertension. -Urine protein to creatinine ratio: 0.66 -24-hour urine collection started -Procardia 30 mg XL started -As long as blood pressure remains controlled for her scheduled follow-up blood pressure checks we will plan to deliver at 37 weeks gestation. Discussed this with the patient. Discussed the risk of preeclampsia. Reviewed that the patient should return to care if her blood pressure was 160/110 or greater or if she had a headache, vision changes, or right upper quadrant pain. #Methamphetamine use #Heroin use -Encouraged the patient to stop using heroin and methamphetamines -Offered transfer to for enrollment in the pathways program and monitoring -Discussed possible NICU requirements of the and offered transfer to a tertiary care center with the NICU. Patient declines. States that she does not plan to use drugs and plans to keep custody of this child. -While the patient reported drug use within the last 24 hours her urine drug screen was negative #History of thyroidectomy -Patient states she does not take any medication for thyroid replacement -Will order thyroid labs at her next visit Disposition: -Patient will return to labor and delivery tomorrow for her second dose of steroids, an NST, and blood pressure check -Patient will return to labor and delivery on Sunday for an NST and blood pressure check -Patient will return to labor and delivery on Sunday for a BPP and blood pressure check -Patient is scheduled to see me in the office on Sunday for a formal establish care visit
--- NOTE | 2023-07-19 16:38 | P.HP_ITS ---
History of Present Illness *Admission Date: 07/19/23 *Reason for visit:: Establish OB care *History of present illness: Arlin Tang is a 32 yo who presented to the ED for medical clearance today and was noted to be 8+ months . I was called for medical clearance for incarceration from an obstetrical standpoint and the patient was brought to labor and delivery. -On arrival her blood pressure was 150s over 100s. Patient denies a history of -induced hypertension or preeclampsia. - complicated by: No care, methamphetamine abuse, heroin abuse, THC use, tobacco use, history of x 2, and a history of thyroid removal. -Reports she last used meth today and last used heroin yesterday. Reports that she has not been using heroin for a long and does not use it every day. Denies any alcohol use with this . States that she smokes 1 pack of day. -Reports her warrant for the reason she got arrested was for not paying child support. Her dad has 2 of her first 2 children. -Denies any , , delivery, or complications with her first 2 pregnancies. Denies history of gestational diabetes. -Her first was for failure to dilate past 2 cm and her second was a scheduled repeat. -Denies any surgeries aside from her C-sections [facility] Disclaimer: The information contained in this section may have been updated after the patient was seen, as this information can be updated by other users. Surgical History (Updated 07/19/23 @ 16:29 by Halle Siddiqui DO) H/O thyroidectomy Previous section Social History (Updated 07/19/23 @ 15:16 by Sade Casey RN) Smoking Status: Current every day smoker tobacco type: cigarettes packs per day: 1 alcohol intake: never substance use type: marijuana, heroin and methamphetamine current occupational status: unemployed Travel in the last 8 weeks: None housing: house current occupation: [employer] caffeine: Yes Review of Systems Review of Systems Review of systems (narrative): Review of Systems Constitutional: Denies fever, chills, and sweats Eyes: Denies vision change/ pain Respiratory: Denies cough and shortness of breath Cardiovascular: Denies chest pain and lightheadedness Gastrointestinal: Denies abdominal pain. Denies nausea, vomiting. Genitourinary: Denies dysuria and incontinence Musculoskeletal: Denies shoulder pain and back pain Neurological: Denies change in speech or headaches Meds Home Medications and Allergies Home Medications Medication Instructions Recorded Confirmed Type nifedipine 30 mg tablet,extended 30 mg PO DAILY #30 tabs 07/19/23 Rx release New Prescriptions to Start Prescriptions: nifedipine ArturHalle Allergies Allergy/AdvReac Type Severity Reaction Status Date / Time cefaclor [From [facility]] Allergy Unknown Verified 03/15/22 16:13 Exam Data for Last 24 hours Vital signs and Labs for Last 24 Hours: Temp Pulse Resp BP Pulse Ox O2 Del Method 98.7 F 102 H 18 108/59 L 100 Room Air 07/19/23 08:22 07/19/23 08:22 07/19/23 08:22 07/19/23 14:40 07/19/23 08:22 07/19/23 08:22 Laboratory Results - last 24 hr 07/19/23 07:40: Urine Color Yellow, Urine Appearance Clear, Urine pH 6.5, Ur Spe cific [place] 1.025, Urine Protein 1+, Urine Glucose (UA) Negative, Urine Ketones Negative, Urine Blood Negative, Urine Nitrate Negative, Urine Bilirubin Negative, Urine Urobilinogen 0.2, Ur Leukocyte Esterase Negative, Urine RBC None, Urine WBC 3-5, Ur Squamous Epith Cells 5-10, Urine Bacteria 1+, Hyaline Casts Occasional, Urine Mucus Trace, Urine Creatinine 158, Urine Total Protein 1 04.0 H, Urine Opiates Screen Negative, Urine Methadone Screen Negative, Ur Barbituates Screen Negative, Ur Phencyclidine Scrn Negative, Ur Amphetamines Screen TNP, U Benzodiazepines Scrn Negative, Urine Cocaine Screen Negative, U Marijuana (THC) Screen Positive H 07/19/23 09:10: WBC 7.7, RBC 3.43 L, Hgb 10.0 L, Hct 29.5 L, MCV 86.0, MCH 29.3, MCHC 34.1, RDW 13.8, Plt Count 283, MPV 9.2, Neut % (Auto) 74.8, Lymph % (Auto) 20.5, [place] % (Auto) 4.3, Eos % (Auto) 0.2, Baso % (Auto) 0.2, Neut # (Auto) 5.8, Lymph # (Auto) 1.6, [place] # (Auto) 0.3, Eos # (Auto) 0.0, Baso # (Auto) 0.0, Sodium 132 L, Potassium 3.8, Chloride 104, Carbon Dioxide 24, Anion Gap 7.8, BUN 14, Creatinine 0.70, Estimated Creat Clear 155, Estimated GFR 96, Est GFR ( Amer) 116, Glucose 84, Uric Acid 3.9, Calcium 8.5, Total Bilirubin 0.2, AST 43 H, ALT 30, Alkaline Phosphatase 260 H, Total Protein 6.6, Albumin 3.2 L, Globulin 3.4 H, Albumin/Globulin Ratio 0.9 L, Blood Type O Positive, Antibody Screen Negative I & O for Last 24 hours: Intake & Output 07/16/23 07/17/23 07/18/23 07/19/23 23:59 23:59 23:59 23:59 Weight 191 lb Narrative: General: patient is alert oriented in no acute distress and responds appropriately to questions. Sitting up in the bed and doing well HEENT: NCAT, EOMI, moist mucous membranes, neck supple with full ROM Cardiovascular: Tachycardia, +S1/S2, no murmurs or rubs Pulmonary: Clear to auscultation bilaterally, nonlabored breathing, symmetric chest rise Abdominal: Fundus appropriate for gestation, firm, and no tenderness noted Extremities: +1 edema, no tenderness or cyanosis noted Skin: Normal turgor, intact, warm. Negative for erythema, pallor, petechia, or lesions Neurologic: Negative for sensory or motor deficit Psychiatric: Normal affect, normal thought process, good judgment and insight, no depression or anxious mood appreciated. *Routine HEENT Exam Head: Present normocephalic and atraumatic Eye: Present EOMI, PERRL and normal accommodation; Absent conjunctival icterus, scleral injection, nystagmus or exophthalmos ENT: Present mucous membranes moist *Routine Respiratory Exam Respiratory: Present CTA bilaterally, normal respiratory effort, able to speak in complete sentences and symmetric chest movement; Absent accessory muscle use, decreased breath sounds, rales, respiratory distress, wheezes, distant breath sounds or diminished air movement *Routine Cardiovascular Exam Cardiovascular: Present RRR, Normal S1 and Normal S2; Absent murmur or gallop *Routine Abdominal Exam Abdominal: Present soft and normoactive bowel sounds; Absent tenderness, distended, rebound or guarding *Routine Rectal Exam Rectal:: deferred *Routine Genitalia Exam Genitalia:: normal female Assessment and Plan *Assessment and plan (1) H/O thyroidectomy: Status: Acute Category: Surgical Code(s): E89.0 - Postprocedural hypothyroidism (2) 35 weeks gestation of : Status: Acute Category: Medical Code(s): Z3A.35 - 35 weeks gestation of (3) Preeclampsia: Status: Acute Category: Medical Code(s): O14.90 - Unspecified pre-eclampsia, unspecified trimester (4) Methamphetamine use: Status: Acute Category: Medical Code(s): F15.10 - Other stimulant abuse, uncomplicated (5) Heroin use affecting : Status: Acute Category: Medical Code(s): O99.320 - Drug use complicating , unspecified trimester; F11.90 - Opioid use, unspecified, uncomplicated (6) Thyroid goiter: Status: Acute Category: Medical Code(s): E04.9 - Nontoxic goiter, unspecified (7) care in third trimester: Status: Acute Category: Medical Code(s): Z34.93 - Encounter for supervision of normal , unspecified, third trimester (8) No care in current : Status: Acute Category: Medical Code(s): O09.30 - Supervision of with insufficient care, unspecified trimester Plan #35 weeks -NST reactive -BPP 8 out of 8 -Ultrasound today revealed a average gestational age of 35 weeks and 5 days with an TODD of 08/18/2023. EFW was 2575 g, 5 pounds 11 ounces. -Limited anatomy appears complete -Fetus was cephalic with a posterior lateral placenta, grade 2-3 -MVP: 3.64. SHELL: 9.19 cm -New OB labs were obtained -Betamethasone ordered for possible delivery prior to 37 weeks with for dating #Preeclampsia -Unclear if blood pressures are elevated secondary to methamphetamine abuse or -induced hypertension. -Urine protein to creatinine ratio: 0.66 -24-hour urine collection started -Procardia 30 mg XL started -As long as blood pressure remains controlled for her scheduled follow-up blood pressure checks we will plan to deliver at 37 weeks gestation. Discussed this with the patient. Discussed the risk of preeclampsia. Reviewed that the patient should return to care if her blood pressure was 160/110 or greater or if she had a headache, vision changes, or right upper quadrant pain. #Methamphetamine use #Heroin use -Encouraged the patient to stop using heroin and methamphetamines -Offered transfer to for enrollment in the pathways program and monitoring -Discussed possible NICU requirements of the infant and offered transfer to a tertiary care center with the NICU. Patient declines. States that she does not plan to use drugs and plans to keep custody of this child. -While the patient reported drug use within the last 24 hours her urine drug screen was negative #History of thyroidectomy -Patient states she does not take any medication for thyroid replacement -Will order thyroid labs at her next visit Disposition: -Patient will return to labor and delivery tomorrow for her second dose of steroids, an NST, and blood pressure check -Patient will return to labor and delivery on Sunday for an NST and blood pressure check -Patient will return to labor and delivery on Sunday for a BPP and blood pressure check -Patient is scheduled to see me in the office on Sunday for a formal establish care visit
--- NOTE | 2023-07-19 16:41 | P.DS_ITS ---
General Admission date:: 07/19/23 Discharge date: 07/19/23 HPI HPI HPI: Ariln Tang is a 32 yo who presented to the ED for medical clearance today and was noted to be 8+ months . I was called for medical clearance for incarceration from an obstetrical standpoint and the patient was brought to labor and delivery. -On arrival her blood pressure was 150s over 100s. Patient denies a history of -induced hypertension or preeclampsia. - complicated by: No care, methamphetamine abuse, heroin abuse, THC use, tobacco use, history of x 2, and a history of thyroid removal. -Reports she last used meth today and last used heroin yesterday. Reports that she has not been using heroin for a long and does not use it every day. Denies any alcohol use with this . States that she smokes 1 pack of day. -Reports her warrant for the reason she got arrested was for not paying child support. Her dad has 2 of her first 2 children. -Denies any , , delivery, or complications with her first 2 pregnancies. Denies history of gestational diabetes. -Her first was for failure to dilate past 2 cm and her second was a scheduled repeat. -Denies any surgeries aside from her C-sections Hospital Course Hospital Course Hospital Course: Arlni was brought to labor and delivery for initial visit after presenting to the ED for medical clearance for incarceration. Please see HPI for full details. Patient was diagnosed with preeclampsia and discharged home with a 24-hour urine and blood pressure medications. She has short interval follow-up scheduled throughout the holiday weekend. She was given a dose of s teroids while here and will follow-up tomorrow for her second dose. She will establish care officially on Sunday with a visit in the office. The patient will be 37 weeks gestation and around July 28. Will plan for delivery around 37 weeks gestation secondary to preeclampsia. Exam Data for Last 24 hours Vital signs and Labs for Last 24 Hours: Temp Pulse Resp BP Pulse Ox O2 Del Method 98.7 F 102 H 18 108/59 L 100 Room Air 07/19/23 08:22 07/19/23 08:22 07/19/23 08:22 07/19/23 14:40 07/19/23 08:22 07/19/23 08:22 Laboratory Results - last 24 hr 07/19/23 07:40: Urine Color Yellow, Urine Appearance Clear, Urine pH 6.5, Ur Specific [place] 1.025, Urine Protein 1+, Urine Glucose (UA) Negative, Urine Ketones Negative, Urine Blood Negative, Urine Nitrate Negative, Urine Bilirubin Negative, Urine Urobilinogen 0.2, Ur Leukocyte Esterase Negative, Urine RBC None, Urine WBC 3-5, Ur Squamous Epith Cells 5-10, Urine Bacteria 1+, Hyaline Casts Occasional, Urine Mucus Trace, Urine Creatinine 158, Urine Total Protein 104.0 H, Urine Opiates Screen Negative, Urine Methadone Screen Negative, Ur Barbituates Screen Negative, Ur Phencyclidine Scrn Negative, Ur Amphetamines Screen TNP, U Benzodiazepines Scrn Negative, Urine Cocaine Screen Negative, U Marijuana (THC) Screen Positive H 07/19/23 09:10: WBC 7.7, RBC 3.43 L, Hgb 10.0 L, Hct 29.5 L, MCV 86.0, MCH 29.3, MCHC 34.1, RDW 13.8, Plt Count 283, MPV 9.2, Neut % (Auto) 74.8, Lymph % (Auto) 20.5, [place] % (Auto) 4.3, Eos % (Auto) 0.2, Baso % (Auto) 0.2, Neut # (Auto) 5.8, Lymph # (Auto) 1.6, [place] # (Auto) 0.3, Eos # (Auto) 0.0, Baso # (Auto) 0.0, Sodium 132 L, Potassium 3.8, Chloride 104, Carbon Dioxide 24, Anion Gap 7.8, BUN 14, Creatinine 0.70, Estimated Creat Clear 155, Estimated GFR 96, Est GFR ( Amer) 116, Glucose 84, Uric Acid 3.9, Calcium 8.5, Total Bilirubin 0.2, AST 43 H, ALT 30, Alkaline Phosphatase 260 H, Total Protein 6.6, Albumin 3.2 L, Globulin 3.4 H, Albumin/Globulin Ratio 0.9 L, Blood Type O Positive, Antibody Screen Negative I & O for Last 24 hours: Intake & Output 07/16/23 07/17/23 07/18/23 07/19/23 23:59 23:59 23:59 23:59 Weight 191 lb Narrative: General: patient is alert oriented in no acute distress and responds appropria tely to questions. Sitting up in the bed and doing well HEENT: NCAT, EOMI, moist mucous membranes, neck supple with full ROM Cardiovascular: Tachycardia, +S1/S2, no murmurs or rubs Pulmonary: Clear to auscultation bilaterally, nonlabored breathing, symmetric chest rise Abdominal: Fundus appropriate for gestation, firm, and no tenderness noted Extremities: +1 edema, no tenderness or cyanosis noted. Plus 2 out of 4 reflexes in the lower extremities bilaterally Skin: Normal turgor, intact, warm. Negative for erythema, pallor, petechia, or lesions Neurologic: Negative for sensory or motor deficit Psychiatric: Normal affect, normal thought process, good judgment and insight, no depression or anxious mood appreciated. Constitutional Constitutional: no acute distress *Routine HEENT Exam Head: Present normocephalic Eye: Present EOMI and PERRL ENT: Present mucous membranes moist *Routine Neck Exam Neck: Present supple; Absent lymphadenopathy *Routine Respiratory Exam Respiratory: Present CTA bilaterally *Routine Cardiovascular Exam Cardiovascular: Present RRR *Routine Abdominal Exam Abdominal: Present soft and normoactive bowel sounds; Absent tenderness *Routine Extremities Exam Extremities: Absent cyanosis, clubbing or edema *Routine Skin Exam Skin: Present warm; Absent rash *Routine Neurological Exam Neurological: Present alert and oriented X3 Results Data Completed and Pending Labs on day of discharge: Labs from last 24 hours 07/19/23 07/19/23 09:10 07:40 WBC 7.7 RBC 3.43 L Hgb 10.0 L Hct 29.5 L MCV 86.0 MCH 29.3 MCHC 34.1 RDW 13.8 Plt Count 283 MPV 9.2 Neut % (Auto) 74.8 Lymph % (Auto) 20.5 [place] % (Auto) 4.3 Eos % (Auto) 0.2 Baso % (Auto) 0.2 Neut # (Auto) 5.8 Lymph # (Auto) 1.6 [place] # (Auto) 0.3 Eos # (Auto) 0.0 Baso # (Auto) 0.0 Sodium 132 L Potassium 3.8 Chloride 104 Carbon Dioxide 24 Anion Gap 7.8 BUN 14 Creatinine 0.70 Estimated Creat Clear 155 Estimated GFR 96 Est GFR ( Amer) 116 Glucose 84 Uric Acid 3.9 Calcium 8.5 Total Bilirubin 0.2 AST 43 H ALT 30 Alkaline Phosphatase 260 H Total Protein 6.6 Albumin 3.2 L Globulin 3.4 H Albumin/Globulin Ratio 0.9 L Urine Color Yellow Urine Appearance Clear Urine pH 6.5 Ur Specific [place] 1.025 Urine Protein 1+ Urine Glucose (UA) Negative Urine Ketones Negative Urine Blood Negative Urine Nitrate Negative Urine Bilirubin Negative Urine Urobilinogen 0.2 Ur Leukocyte Esterase Negative Urine RBC None Urine WBC 3-5 Ur Squamous Epith Cells 5-10 Urine Bacteria 1+ Hyaline Casts Occasional Urine Mucus Trace Urine Creatinine 158 Urine Total Protein 104.0 H Urine Opiates Screen Negative Urine Methadone Screen Negative Ur Barbituates Screen Negative Ur Phencyclidine Scrn Negative Ur Amphetamines Screen TNP U Benzodiazepines Scrn Negative Urine Cocaine Screen Negative U Marijuana (THC) Screen Positive H Blood Type O Positive Antibody Screen Negative DS: Diagnosis Discharge Diagnosis (1) H/O thyroidectomy: Status: Acute Code(s): E89.0 - Postprocedural hypothyroidism (2) 35 weeks gestation of : Status: Acute Code(s): Z3A.35 - 35 weeks gestation of (3) Preeclampsia: Status: Acute Code(s): O14.90 - Unspecified pre-eclampsia, unspecified trimester (4) Methamphetamine use: Status: Acute Code(s): F15.10 - Other stimulant abuse, uncomplicated (5) Heroin use affecting : Status: Acute Code(s): O99.320 - Drug use complicating , unspecified trimester; F11.90 - Opioid use, unspecified, uncomplicated (6) Thyroid goiter: Status: Acute Code(s): E04.9 - Nontoxic goiter, unspecified (7) care in third trimester: Status: Acute Code(s): Z34.93 - Encounter for supervision of normal , unspecified, third trim katiana (8) No care in current : Status: Acute Code(s): O09.30 - Supervision of with insufficient care, unspecified trimester Problem details: Patient will be discharged home with strict return precautions given. She was started on blood pressure medicine Preeclampsia precautions were reviewed with the patient Labor precautions reviewed with the patient Will schedule her at 37 weeks and 0 days gestation when she comes to the office for a visit on Sunday Patient was given steroids for lung maturity All questions and concerns were addressed with the patient in detail and she was understanding Meds Home Medications and Allergies Home Medications Medication Instructions Recorded Confirmed Type nifedipine 30 mg tablet,extended 30 mg PO DAILY #30 tabs 07/19/23 Rx release New Prescriptions to Start Prescriptions: nifedipine Halle Siddiqui Allergies Allergy/AdvReac Type Severity Reaction Status Date / Time cefaclor [From [facility]] Allergy Unknown Verified 03/15/22 16:13 Discharge Plan Disposition Patient Disposition: Home, Self-Care Follow up Plan Follow up with: Halle Siddiqui DO [Staff Physician] - 07/25/23 2:15 pm Radiology,SCAR [Physician] - 07/24/23 9:15 am (Ultrasound appointment at radiology department.) Prescriptions/Medication Reconciliation: New nifedipine 30 mg tablet extended release 30 mg PO DAILY Qty: 30 0RF Discontinued levonorgestrel-ethinyl estrad [Vienva] 0.1-20 mg-mcg tablet 1 tab PO DAILY Problem Reconciliation Problems Reviewed?: Yes Patient Discharge Instructions ACTIVITY: Continue current activity and Limited activity DIET: continue same diet and regular diet Providers Primary Care Provider: Provider,Referral Admit Provider: Halle Siddiqui Attending Provider: Halle Siddiqui
[2023-07-19 17:21] LABS: Thyroid Stimulating Hormone 1.47 uIU/mL (0.465-4.68)
[2023-07-20 06:13] LABS: HIV Screen 4th Generation wRfx Non Reactive (Non Reactive); Hepatitis B Surface Antigen Negative (Negative)
[2023-07-20 11:09] LABS: Rapid Plasma Reagin Ab Titer Non Reactive titer (NonRea<1:1); Rubella Antibodies, IgG 4.46 index (Immune >0.99)
[2023-07-25 16:16] LABS: Amphetamine Positive (.); Amphetamine (GC/MS) >3000 ng/mL (Cutoff=500); Amphetamines Positive (.); Methamphetamine Positive (.); Methamphetamine (GC/MS) >3000 ng/mL (Cutoff=500)
== END 2023-07-19 17:30 | disposition home or self-care (01) ==
LOC: OBOUT 10:06 → OB 10:06
PROVIDERS: Admitting Provider Obstetrics & Gynecology; Visit Provider Obstetrics & Gynecology
DX: O14.93 Unspecified pre-eclampsia, third trimester (principal); Z3A.35 35 weeks gestation of pregnancy; O99.323 Drug use complicating pregnancy, third trimester; F15.90 Other stimulant use, unspecified, uncomplicated; F11.90 Opioid use, unspecified, uncomplicated
CPT/HCPCS: 59025; 76811; 76819; 76820; 80053; 80307; 80324; 81001; 82570; 84155; 84443; 84550; 85025; 86593; 86762; 86850; 87340; G0378

== ENCOUNTER 2023-07-20 11:45 | Outpatient (CLI) | payer OTHER, SELFPAY ==
[2023-07-20 12:15] VITALS: BMI 29.0
[2023-07-20 12:27] VITALS: BP 131/83; PULSE 110; RESP 17; TEMP 36.7; O2SAT 100; BMI 29.0
[2023-07-20] MEDS: BETAMETHASONE ACET/PHOS 6MG/ML 5ML MDV 12 MG IM (12:48)
== END 2023-07-20 12:55 | disposition home or self-care (01) ==
LOC: OBOUT 11:50 → OB 11:52
PROVIDERS: PCP Internal Medicine Adolescent Medicine; Visit Provider Obstetrics & Gynecology
DX: O26.893 Other specified pregnancy related conditions, third trimester (principal); Z3A.35 35 weeks gestation of pregnancy
CPT/HCPCS: 59025; 96372; G0463

== ENCOUNTER 2023-07-22 08:34 | Inpatient (IN) | payer OTHER, SELFPAY ==
[2023-07-22] VITALS (8 sets, daily range): BP systolic 123–147; BP diastolic 77–96; PULSE 75–97; RESP 16–91; TEMP 36.3–37; O2SAT 97–100; BMI 29.0
--- NOTE | 2023-07-22 08:34 | EXP.OB.APHP ---
OB - H&P: HPI Antepartum History of Present Illness Chief complaint: Regular, painful uterine contractions History of present illness: Ms Arlin Tang is a 32 yo at 36w1d, by third trimester ultrasound 07/19/23, who presents to [facility] L&D for regular painful uterine contractions, BP check and NST. She was scheduled to come to L&D for NST and BP check. However, she reports contractions started last night/this morning around 0000. She has had no care this . She was first seen in the hospital 07/19/23 for medical clearance prior to incarceration. BP was noted to be elevated. She was evaluated on Labor and Delivery and discharged with prescription for Procardia and close follow-up. She received a dose of Celestone on 07/19/23 with second dose 24 hours later, 07/20/23. History of x 2. Past medical history significant for Hepatitis C and drug abuse. She admits to used Heroin a few times her in but more consistently used methamphetamine. She reports last use was 07/18/23. History of thyroidectomy. The only medication she has been taking this is recently prescribed Procardia. History of Present Criteria for establishing EDC:: based on 3rd trimester US only care: none Labs Blood type: O (+) positive Rubella: immune RPR/VDRL: nonreactive GBS status: unknown HBsAG: negative [facility] Disclaimer: The information contained in this section may have been updated after the patient was seen, as this information can be updated by other users. Medical History (Updated 07/22/23 @ 08:47 by Gaby Rosenbaum DO) 36 weeks gestation of labor Surgical History (Updated 07/22/23 @ 08:47 by Gaby Rosenbaum DO) H/O thyroidectomy Previous section Social History Smoking Status: Current every day smoker tobacco type: cigarettes packs per day: 1 alcohol intake: never substance use type: marijuana, heroin and methamphetamine current occupational status: unemployed Travel in the last 8 weeks: None housing: house current occupation: [employer] caffeine: Yes Review of Systems Review of Systems Review of systems:: pertinent systems reviewed and negative unless documented below *Genitourinary Comments: + contractions Meds Home Medications and Allergies Home Medications Medication Instructions Recorded Confirmed Type nifedipine 30 mg tablet,extended 30 mg PO DAILY #30 tabs 07/19/23 Rx release New Prescriptions to Start Prescriptions: Allergies Allergy/AdvReac Type Severity Reaction Status Date / Time cefaclor [From [facility]] Allergy Unknown Verified 03/15/22 16:13 OB - H&P: Exam Constitutional no acute distress and cooperative Routine HEENT Exam Head: Present normocephalic and atraumatic Eye: Absent conjunctivae pink ENT: Present mucous membranes moist Routine Neck Exam Present full ROM Routine Respiratory Exam Present CTA bilaterally and normal respiratory effort Routine Cardiovascular Exam Present RRR Routine Abdominal Exam Present soft (Gravid); Absent tenderness Routine Rectal Exam Patient deferred: visual exam Routine Exam External: Present normal urethra appearance Routine Extremities Exam Present full ROM; Absent edema or calf tenderness Routine Neurological Exam Present alert, oriented X3 and moving all extremities Routine Psychiatric Exam Present normal affect and cooperative Detailed Labor and Delivery Exam Dilation (cm): 6 Effacement (%): 90 Cervix position: mid Consistency: soft Membranes: intact and bulging Baseline heart rate: 140 monitor accelerations: Absent monitor decelerations: None bottom turner variability: Moderate (11-25) Contraction frequency (min): 2 OB - A/P Antepartum (1) 36 weeks gestation of : Status: Acute (2) labor: Status: Acute (3) Previous section:
[2023-07-22 08:47] LABS: Basophils % 0.3 % (0.1-2.0); Eosinophils % 0.2 % (0.1-12.0); Hematocrit 30.4 % (37.0-47.0); Hemoglobin 10.1 g/dL (12.2-16.2); Lymphocytes # 2.1 K/mm3 (0.7-4.5); Lymphocytes % 22.6 % (10-50); Mean Corpuscular HGB Conc 33.3 g/dL (31.8-35.4); Mean Corpuscular Hemoglobin 28.5 pg (27.0-31.2); Mean Corpuscular Volume 85.6 fl (81-99); Mean Platelet Volume 9.2 fl (7.4-10.4); Monocytes # 0.5 K/mm3 (0.1-1.0); Monocytes % 4.9 % (1.7-9.3); Neutrophils # 6.7 K/mm3 (1.8-7.8); Neutrophils % 71.9 % (37.0-80.0); Platelet Count 309 K/mm3 (142-424); Red Blood Count 3.55 M/mm3 (4.20-5.40); Red Cell Distribution Width 13.9 % (11.5-17.5); White Blood Count 9.4 K/mm3 (4.8-10.8)
[2023-07-22 09:11] LABS: Alanine Aminotransferase 30 U/L (12-78); Alkaline Phosphatase 235 U/L (38-126); Anion Gap 6.2 mEq/L (5-15); Aspartate Amino Transferase 37 U/L (14-36); Bilirubin,Total 0.2 mg/dl (0.2-1.3); Blood Urea Nitrogen 13 mg/dl (7-17); Calcium 8.1 mg/dl (8.4-10.2); Carbon Dioxide 23 mmol/L (22.0-30.0); Chloride 105 mmol/L (98-107); Creatinine Clearance Estimated 155 mL/min (50-200); Estimated Glomerular Filt Rate 96 ml/min (>60); GFR (African American) 116 ML/MIN (>60); Globulin 3.1 g/dL (1.3-3.2); Glucose 76 mg/dl (74-100); Potassium 4.2 mmoL/L (3.5-5.1); Sodium 130 mmol/L (136-145); Total Protein,Serum 6.1 g/dl (6.3-8.2)
[2023-07-22 09:45] LABS: Cord Blood PH 7.35 (7.35-7.45)
--- NOTE | 2023-07-22 10:26 | EXP.OP.NOTE ---
Date of procedure: 07/22/23 Pre-op Diagnosis:: 1. IUP at 36w1d 2. Labor 3. Preeclampsia 4. History of x 2 5. No care 6. H/o amphetamine use 7. H/o Heroin use in 8. History of partial thyroidectomy Post-op Diagnosis:: 1. IUP at 36w1d 2. Labor 3. Preeclampsia 4. History of x 2 5. No care 6. H/o amphetamine use 7. H/o Heroin use in 8. History of partial thyroidectomy Procedure performed:: Repeat Low Transverse Section Surgeon:: Gaby Rosenbaum DO Nursery Rn(s):: Marco Dominguez MD ESTHETICIAN MAKEUP ARTIST:: Sanjiv Iglesias Anesthesia: spinal Estimated blood loss (mL): 400 Clinical Note:: Ms Arlin Tang is a 32 yo at 36w1d, by third trimester ultrasound 07/19/23, admitted to [facility] L&D for labor. She was scheduled to come to L&D for NST and BP check for preeclampsia. However, she reported contractions started last night/this morning around 0000. She has had no care this . She was first seen in the hospital 07/19/23 for medical clearance prior to incarceration. BP was noted to be elevated. She was diagnosed with preeclampsia. She was evaluated on Labor and Delivery and discharged with prescription for Procardia and close follow-up. She received a dose of Celestone on 07/19/23 with second dose 24 hours later, 07/20/23. History of x 2. Past medical history significant for Hepatitis C and drug abuse. She admits to used Heroin a few times her in but more consistently used methamphetamine. She reports last use was 07/18/23. History of partial thyroidectomy. The only medication she has been taking this is recently prescribed Procardia. Operative findings:: 1. Live female baby weighing 6 lb 11 0z, AGPARs, 9 (1 min), 9 (5 min) 2. Grossly normal appearing uterus, bilateral fallopian tubes and ovaries 3. Nuchal cord x 1, easily reduced 4. Meconium stained amniotic fluid Operative note:: The risks, benefits and alternatives of the procedure were reviewed with the patient. Informed consent was obtained. Patient was taken to the operating room where spinal anesthesia was placed without difficulty. The patient received Clindamycin 900 mg and Gentamicin 5mg/kg preoperatively. Patient was placed in dorsal supine position with a leftward tilt. SCDs in place. Verdugo catheter had been placed and was draining clear urine prior to the start of the procedure. heart tones were obtained. Patient was then prepped and draped in normal sterile fashion. Allis clamp test was performed to ensure adequate anesthesia. A Pfannenstiel skin incision was made along prior Pfannenstiel scar. This was carried through to underlying layer of fascia. Fascia was incised in midline, extended laterally with Hathaway scissors. Superior aspect of fascial incision was grasped with two Riley clamps, elevated up, and rectus muscle dissected off bluntly and sharply with Hathaway scissors. Inferior aspect of fascial incision was grasped with two Riley clamps, elevated up, and rectus muscle dissected off bluntly and sharply with Hathaway scissors.The retcus muscle was then in the midline and the peritoneum was entered sharpley with Hathaway scissors. Peritoneal incision was then extended superiorly and inferiorly with good visualization of the bladder. Favio retractor was inserted. Bladder flap was made with Metzenbaum scissors. The lower uterine segment was incised in a transverse fashion. Fluorescent meconium stained amniotic fluid was noted. Head was delivered without difficulty. Nuchal x 1 was easily reduced. Remainder of body was delivered without difficulty. Mouth and nares were bulb suctioned. Spontaneous cry was noted. Delayed cord clamping was performed for 60 seconds. The umbilical cord was clamped and cut. The was handed to awaiting pediatric staff in stable condition. Dr. Hendrickson was present. Apgars were 9(1 min), 9(5 min). Section of cord was obtained for cord g
--- NOTE | 2023-07-22 10:37 | P.PNANES_ITS ---
[facility] Disclaimer: The information contained in this section may have been updated after the patient was seen, as this information can be updated by other users. Medical History (Updated 07/22/23 @ 08:47 by Gaby Rosenbaum DO) 36 weeks gestation of labor Surgical History (Updated 07/22/23 @ 08:47 by Gaby Rosenbaum DO) H/O thyroidectomy Previous section Social History Smoking Status: Current every day smoker tobacco type: cigarettes packs per day: 1 alcohol intake: never substance use type: marijuana, heroin and methamphetamine current occupational status: unemployed Travel in the last 8 weeks: None housing: house current occupation: sti caffeine: Yes [facility] Anesthesia Checklist Patient Identification Patient Identification: Arm Band Structural Data Admitted From: Inpatient Planned Operative Procedure/s: Repeat C/S Consent for Planned Operative Procedure(s) Verified: Yes Verified Documents: Surgical Consent and History and Physical NPO Status Verified Time NPO: 00:00 Additional verifications Anesthesia Reactions: No Hx Blood Transfusions: No Blood Transfusion Reaction: No Airway Assessment Mallampati Score:: Class II C-Spine Mobility Assessed: Yes TMJ Mobility Assessed: Yes Dentition: Good Dentition Neurological Assessment Level of Consciousness: Awake and Alert Anesthesia Plan Anesthesia Risk discussed: Yes Anesthesia Plan: Verified ASA Class: II Anesthesia Type: Spinal (with Bilateral TAP Block)
--- NOTE | 2023-07-22 10:38 | P.PNANES_ITS ---
[facility] Anesthesia Record Part I Anesthesia Record I Intake, IV Amount: 1,300 Hydration: Adequate Estimated blood loss (mL): 400 Urine output (mL): 400 Blood Products used (#): none Blood Pressure: 130/77 SaO2: 100 Pulse Rate: 75 Airway Patency: Patent Respiratory Rate: 16 Temperature: 97.4 F Patient is:: Awake and Stable Stable to PACU at:: 10:20
[2023-07-22 11:13] LABS: Microscopic, Urine URINE MICROSCOPIC (MICROSCOPIC)
--- NOTE | 2023-07-22 11:13 | SUR.OPER ---
Urinary catheter was already placed prior to patient in the OR. The patient did well during c section. Urine output at 400. Patients qbl is 444. Dr notified and aware. Pt was stable in Pacu with scant free flow bleeding. Uterus 1-2 fingers below umbilicus and firm.
[2023-07-22 11:14] LABS: Appearance,Urine CLEAR (Clear); Bilirubin,Urine Negative (Negative); Blood, Urine Negative (Negative); Color,Urine YELLOW (Yellow); Glucose,Urine (UA) Negative (Negative); Ketones,Urine Negative (Negative); Leukocyte Esterase,Urine Negative (Negative); Nitrate,Urine Negative (Negative); Protein,Urine Negative (Negative); Specific Gravity, Urine 1.015 (1.005-1.030); Urobilinogen,Urine 0.2 EU/dl (0.2)
[2023-07-22 11:26] LABS: Bacteria,Urine 1+ /lpf; Squamous Epithelial Cell,Urine Occasional #/hpf (0-5); WBC,Urine Occasional #/hpf (0-3)
[2023-07-22 11:45] LABS: Benzodiazepines Screen,Urine Negative ng/ml (<200); Cannabinoid Screen,Urine Negative ng/ml (<50); Cocaine Screen,Urine Negative ng/ml (<300); Methadone Screen,Urine Negative ng/ml (<300); Opiate Screen,Urine Negative ng/ml (<300)
[2023-07-22 11:49] LABS: Barbiturates Screen,Urine Negative ng/ml (<200)
[2023-07-22 11:54] LABS: Phencyclidine Screen,Urine Negative ng/ml (<25)
--- NOTE | 2023-07-22 21:26 | PC.NURSE ---
This rn called case into central intake, Spoke with Melida id [id number], Confirmation number [id number]. Reported on pt history.
--- NOTE | 2023-07-22 22:47 | PC.NURSE ---
Hilary Ruth from [facility] called letting us know she is taking the case her cell is [phone] if we need to get ahold of her, will be here tomorrow to access
[2023-07-23 03:58] VITALS: BP 124/66; PULSE 86; RESP 17; TEMP 36.9; O2SAT 100
[2023-07-23 07:21] LABS: Basophils % 0.1 % (0.1-2.0); Eosinophils % 0.3 % (0.1-12.0); Hematocrit 29.8 % (37.0-47.0); Hemoglobin 9.9 g/dL (12.2-16.2); Lymphocytes # 1.3 K/mm3 (0.7-4.5); Lymphocytes % 15.3 % (10-50); Mean Corpuscular HGB Conc 33.3 g/dL (31.8-35.4); Mean Corpuscular Volume 86.9 fl (81-99); Mean Platelet Volume 10.2 fl (7.4-10.4); Monocytes # 0.4 K/mm3 (0.1-1.0); Monocytes % 4.3 % (1.7-9.3); Neutrophils # 6.9 K/mm3 (1.8-7.8); Platelet Count 276 K/mm3 (142-424); Red Blood Count 3.43 M/mm3 (4.20-5.40); Red Cell Distribution Width 14.1 % (11.5-17.5); White Blood Count 8.6 K/mm3 (4.8-10.8)
--- NOTE | 2023-07-23 07:55 | EXP.ACUTE.PN ---
Subjective *Date: 07/23/23 *Time: 08:04 Interval history: POD # 1 s/p RLTCS Resting in bed. Pain not somewhat controlled. Formula feeding. Appropriate lochia. Voiding without difficulty and passing flatus. Tolerating regular diet. Denies fever/chills, chest pain and shortness of breath. No headaches, vision changes, lightheadedness/dizziness. Ambulating well ad damian. Medical Exam Vital signs and Labs for Last 24 Hours: Vital Signs Temp Pulse Pulse Resp BP BP Pulse Ox 07/23/23 03:58 98.4 F 86 17 124/66 100 07/22/23 20:30 98.6 F 90 17 147/92 H 97 07/22/23 16:27 98.3 F 80 18 130/92 H 98 07/22/23 08:30 97.8 F 97 H 18 127/96 H 98 07/22/23 10:50 91 H 129/84 100 07/22/23 10:40 80 H 123/79 100 07/22/23 10:30 79 H 130/77 100 07/22/23 10:20 97.4 F L 89 H 125/80 100 07/22/23 10:39 97.4 F L 75 16 130/77 O2 Del Method 07/23/23 03:58 Room Air 07/22/23 20:30 Room Air 07/22/23 16:27 Room Air 07/22/23 08:30 Room Air 07/22/23 10:50 Room Air 07/22/23 10:40 Room Air 07/22/23 10:30 Room Air 07/22/23 10:20 Room Air 07/22/23 10:39 Intake and Output 07/22/23 07/22/23 07/23/23 15:59 23:59 07:59 Intake Total 1300 / 1300 Output Total 750 / 750 Balance 1300 / 550 -750 / 550 Intake: Intake, Total IV Amount 1300 / 1300 Output: Output, Urine Amount (Catheter) 750 / 750 Verdugo 750 / 750 Other: Weight 191 lb Laboratory Results - last 24 hr 07/22/23 08:25: WBC 9.4, RBC 3.55 L, Hgb 10.1 L, Hct 30.4 L, MCV 85.6, MCH 28.5, MCHC 33.3, RDW 13.9, Plt Count 309, MPV 9.2, Neut % (Auto) 71.9, Lymph % (Auto) 22.6, [place] % (Auto) 4.9, Eos % (Auto) 0.2, Baso % (Auto) 0.3, Neut # (Auto) 6.7, Lymph # (Auto) 2.1, [place] # (Auto) 0.5, Eos # (Auto) 0.0, Baso # (Auto) 0.0, Sodium 130 L, Potassium 4.2, Chloride 105, Carbon Dioxide 23, Anion Gap 6.2, BUN 13, Creatinine 0.70, Estimated Creat Clear 155, Estimated GFR 96, Est GFR ( Amer) 116, Glucose 76, Calcium 8.1 L, Total Bilirubin 0.2, AST 37 H, ALT 30, Alkaline Phosphatase 235 H, Total Protein 6.1 L, Albumin 3.0 L, Globulin 3.1, Albumin/Globulin Ratio 1.0 L, Blood Type O Positive, Antibody Screen Negative 07/22/23 08:47: Urine Color Yellow, Urine Appearance Clear, Urine pH 7.0, Ur Specific [place] 1.015, Urine Protein Negative, Urine Glucose (UA) Negative, Urine Ketones Negative, Urine Blood Negative, Urine Nitrate Negative, Urine Bilirubin Negative, Urine Urobilinogen 0.2, Ur Leukocyte Esterase Negative, Urine RBC None, Urine WBC Occasional, Ur Squamous Epith Cells Occasional, Urine Bacteria 1+, Urine Opiates Screen Negative, Urine Methadone Screen Negative, Ur Barbituates Screen Negative, Ur Phencyclidine Scrn Negative, Ur Amphetamines Screen TNP, U Benzodiazepines Scrn Negative, Urine Cocaine Screen Negative, U Marijuana (THC) Screen Negative 07/22/23 09:41: Cord ABG pH 7.35 07/23/23 07:10: WBC 8.6, RBC 3.43 L, Hgb 9.9 L, Hct 29.8 L, MCV 86.9, MCH 29.0, MCHC 33.3, RDW 14.1, Plt Count 276, MPV 10.2, Neut % (Auto) 80.0, Lymph % (Auto) 15.3, [place] % (Auto) 4.3, Eos % (Auto) 0.3, Baso % (Auto) 0.1, Neut # (Auto) 6.9, Lymph # (Auto) 1.3, [place] # (Auto) 0.4, Eos # (Auto) 0.0, Baso # (Auto) 0.0 I & O for Labs for Last 24 Hours: Intake & Output 07/20/23 07/21/23 07/22/23 07/23/23 23:59 23:59 23:59 23:59 Intake Total 1300 / 1300 Output Total 750 / 750 Balance 550 / 550 Weight 191 lb Head: Present atraumatic and normocephalic ENT: Present mucous membranes moist Neck: Present full ROM Respiratory: Present CTA bilaterally and normal respiratory effort Cardiac: Present Reg Rate and Rhythm GI: Present soft and normal bowel sounds; Absent distention, tenderness or guarding Comments:: Uterine fundus firm and below umbilicus, pfannenstiel incision clean/dry/intact with steri strips Rectal (female): Present deferred (female): Present deferred Extremities: Present normal inspection and full ROM; Ab
--- NOTE | 2023-07-24 07:26 | EXP.ANES.II ---
[facility] Anesthesia Record Part II Anesthesia Record Part II Discharge Time: 10:50 Destination: Obstetric PACU nurse assessment reviewed?: Yes Patient Condition:: Good Anesthesia Complications:: None Swallowing reflex intact?: Yes Airway Patency: Patent Cyanosis?: No Blood Pressure: 129/84 SaO2: 100 Respiratory Rate: 16 Pulse Rate: 91 Temperature: 97.4 F Mental Status: Alert & Oriented Pain level:: 0 Nausea and/or vomitting:: None Intake, IV Amount: 0 Hydration: Adequate
[2023-07-24 07:28] VITALS: BP 129/84; PULSE 91; RESP 16; TEMP 36.3; O2SAT 100
[2023-07-24 08:40] VITALS: BP 123/74; PULSE 93; RESP 16; TEMP 36.7; O2SAT 96
--- NOTE | 2023-07-24 11:19 | EXP.PN ---
Subjective *Date: 07/24/23 *Time: 11:19 Interval history: Arlin Tang is a 32-year-old G3, P3 postop day #2 from a repeat low-transverse delivery at 36 weeks 1 day gestation by third trimester ultrasound on 07/19/2023. She presented to labor and delivery with regular painful contractions was noted to be in labor and had an uncomplicated delivery. was complicated by no care, preeclampsia, methamphetamine and heroin use, delivery x 2, and hepatitis C. From initiating care 3 days prior her blood pressure has been well-controlled on the nifedipine 30 mg once daily. Routine course thus far. She has both breast and bottlefeeding. Reports that she is passing flatus but denies a bowel movement at this time. She is tolerating p.o. without nausea or vomiting. She is voiding without dysuria. Reports her lochia is scant. Denies chest pain shortness of breath or pain in her legs. No further complaints at this time. Exam Data for Last 24 hours Vital signs and Labs for Last 24 Hours: Temp Pulse Resp BP Pulse Ox O2 Del Method 98.4 F 86 16 124/66 100 Room Air 07/23/23 03:58 07/23/23 03:58 07/24/23 07:28 07/23/23 03:58 07/23/23 03:58 07/23/23 03:58 I & O for Last 24 hours: Intake & Output 07/21/23 07/22/23 07/23/23 07/24/23 23:59 23:59 23:59 23:59 Intake Total 1300 / 1300 0 / 0 Output Total 750 / 750 Balance 550 / 550 0 / 0 Weight 191 lb Narrative: General: patient is alert oriented in no acute distress and responds appropriately to questions. Appears to be in minimal pain. HEENT: NCAT, EOMI, moist mucous membranes, neck supple with full ROM Cardiovascular: RRR +S1/S2, no murmurs or rubs Pulmonary: Clear to auscultation bilaterally, nonlabored breathing, symmetric chest rise Abdominal: Fundus below the umbilicus, firm, and tenderness appropriate for the period. Extremities: trace edema, no tenderness or cyanosis noted Skin: Normal turgor, intact, warm. Negative for erythema, pallor, petechia, or lesions. skin incision intact and healing well. covered by steri strips. No signs of infection Neurologic: Negative for sensory or motor deficit Psychiatric: Normal affect, normal thought process, good judgment and insight, no depression or anxious mood appreciated. Assessment and Plan *Assessment and plan (1) No care in current : Status: Acute Qualifiers: Trimester: third trimester Qualified Code(s): O09.33 - Supervision of with insufficient care, third trimester Category: Medical Code(s): O09.30 - Supervision of with insufficient care, unspecified trimester (2) H/O thyroidectomy: Problem Comment: partial Status: Acute Category: Surgical Code(s): E89.0 - Postprocedural hypothyroidism (3) Preeclampsia: Status: Acute Qualifiers: Trimester: third trimester Qualified Code(s): O14.93 - Unspecified pre-eclampsia, third trimester Category: Medical Code(s): O14.90 - Unspecified pre-eclampsia, unspecified trimester (4) Methamphetamine use: Status: Acute Category: Medical Code(s): F15.10 - Other stimulant abuse, uncomplicated (5) Heroin use affecting : Status: Acute Category: Medical Code(s): O99.320 - Drug use complicating , unspecified trimester; F11.90 - Opioid use, unspecified, uncomplicated (6) Acute on chronic blood loss anemia: Status: Acute Category: Medical Code(s): D62 - Acute posthemorrhagic anemia (7) Tobacco use affecting , antepartum: Status: Acute Category: Medical Code(s): O99.330 - Smoking (tobacco) complicating , unspecified trimester (8) Hepatitis C: Status: Acute Qualifiers: Viral hepatitis chronicity: chronic Hepatic coma st
[2023-07-24 19:49] VITALS: BP 136/76; PULSE 110; RESP 18; TEMP 36.8; O2SAT 100
[2023-07-25 04:44] VITALS: BP 117/71; PULSE 90; RESP 18; TEMP 36.9; O2SAT 95
--- NOTE | 2023-07-25 10:34 | EXP.DC.SUM ---
General Admission date:: 07/22/23 HPI HPI HPI: Ms Arlin Tang is a 32 yo at 36w1d, by third trimester ultrasound 07/19/23, who presents to [facility] L&D for regular painful uterine contractions, BP check and NST. She was scheduled to come to L&D for NST and BP check. However, she reports contractions started last night/this morning around 0000. She has had no care this . She was first seen in the hospital 07/19/23 for medical clearance prior to incarceration. BP was noted to be elevated. She was evaluated on Labor and Delivery and discharged with prescription for Procardia and close follow-up. She received a dose of Celestone on 07/19/23 with second dose 24 hours later, 07/20/23. History of x 2. Past medical history significant for Hepatitis C and drug abuse. She admits to used Heroin a few times her in but more consistently used methamphetamine. She reports last use was 07/18/23. History of thyroidectomy. The only medication she has been taking this is recently prescribed Procardia. She was having regular contractions and her blood pressure was elevated. As result of that we elected to perform a repeat lower segment transverse section. Hospital Course Hospital Course Hospital Course: On July 22, 2023 she underwent a repeat lower segment transverse section. She delivered a liveborn female child weighing 6 pounds 11 ounces with Apgars of 9 at 1 and 9 at 5 minutes. She has done well and has remained afebrile throughout her hospitalization. She is eating and drinking and ambulating. She is bottlefeeding. We are awaiting social security specialist consult. She has been taking nifedipine 30 mg XL p.o. daily and her blood pressure has been stabilized. This morning it was 117/71. She will be discharged home to follow-up with Dr. Rosenbaum in approximately 2 weeks time. She will continue with her vitamins and iron. She was given this prescription for Percocet 5/325 #14 tablets. She will continue with vitamins and iron. Her condition on discharge is stable and improved. Exam Data for Last 24 hours Vital signs and Labs for Last 24 Hours: Temp Pulse Resp BP Pulse Ox O2 Del Method 98.5 F 90 18 117/71 95 Room Air 07/25/23 04:44 07/25/23 04:44 07/25/23 04:44 07/25/23 04:44 07/25/23 04:44 07/25/23 04:44 I & O for Last 24 hours: Intake & Output 07/22/23 07/23/23 07/24/23 07/25/23 11:59 11:59 11:59 11:59 Intake Total 1300 / 1300 0 / 0 Output Total 750 / 750 Balance 1300 / 1300 -750 / -750 0 / 0 Weight 191 lb Constitutional Constitutional: no acute distress *Routine HEENT Exam Head: Present normocephalic Eye: Present EOMI and PERRL ENT: Present mucous membranes moist *Routine Neck Exam Neck: Present supple; Absent lymphadenopathy *Routine Respiratory Exam Respiratory: Present CTA bilaterally *Routine Cardiovascular Exam Cardiovascular: Present RRR *Routine Abdominal Exam Abdominal: Present soft and normoactive bowel sounds; Absent tenderness *Routine Extremities Exam Extremities: Absent cyanosis, clubbing or edema *Routine Skin Exam Skin: Present warm; Absent rash *Routine Neurological Exam Neurological: Present alert and oriented X3 DS: Diagnosis Discharge Diagnosis (1) No care in current : Status: Acute Code(s): O09.30 - Supervision of with insufficient care, unspecified trimester Qualifiers: Trimester: third trimester Qualified Code(s): O09.33 - Supervision of with insufficient care, third trimester (2) H/O thyroidectomy: Status: Acute Code(s): E89.0 - Postprocedural hypothyroidism Problem details: partial (3) Preeclampsia: Status: Acute Code(s): O14.90 - Unspecified pre-eclampsia, unspecified trimester Qualifiers: Trimester: third trimester Qualified Code(s): O14.93 - U
--- NOTE | 2023-07-25 12:31 | SW/DCPLANNER ---
Addendum entered by Leena Monroy 08/06/23 13:20: Infant cord screen has been faxed to Katy Reyes: screen is positive. Addendum entered by Leena Monroy 07/25/23 15:22: Katy Reyes contact number: [phone] Original Note: Katy Reyes w/ CPS stated she will be at [facility] this afternoon to investigate this report.
[2023-07-26 05:20] LABS: Buprenorphine, Urine Negative ng/mL (Cutoff=10)
[2023-07-31 11:25] LABS: Amphetamine Positive (.); Amphetamine (GC/MS) 1590 ng/mL (Cutoff=500); Amphetamines Positive (.); Methamphetamine Positive (.); Methamphetamine (GC/MS) 7150 ng/mL (Cutoff=500)
== END 2023-07-25 15:00 | disposition home or self-care (01) | DRG 787 ==
LOC: OBOUT 08:34 → OB 08:34
PROVIDERS: Admitting Provider Obstetrics & Gynecology; PCP Internal Medicine Adolescent Medicine; Visit Provider Obstetrics & Gynecology
PROC: 10D00Z1 Extraction of Products of Conception, Low, Open Approach (ICD-10-PCS; principal; 2023-07-22 09:00)
DX: O60.14X0 Preterm labor third trimester with preterm delivery third trimester, not applicable or unspecified (principal); O98.42 Viral hepatitis complicating childbirth; O99.324 Drug use complicating childbirth; O34.211 Maternal care for low transverse scar from previous cesarean delivery; N85.8 Other specified noninflammatory disorders of uterus; Z3A.36 36 weeks gestation of pregnancy; Z37.0 Single live birth; O69.81X0 Labor and delivery complicated by cord around neck, without compression, not applicable or unspecified; O77.0 Labor and delivery complicated by meconium in amniotic fluid; B19.20 Unspecified viral hepatitis C without hepatic coma; O14.94 Unspecified pre-eclampsia, complicating childbirth
CPT/HCPCS: 59514; 36415; 59025; 80053; 80305; 80306; 80307; 80324; 81001; 82800; 85025; 86850; 88307; 94761; C9290; G0283; J1756

== ENCOUNTER 2023-12-22 18:10 | Outpatient (CLI) | payer OTHER, SELFPAY ==
[2023-12-22 19:09] LABS: Urine Pregnancy, HCG Qual. Negative (Negative)
[2023-12-22 19:22] LABS: Basophils % 0.5 % (0.1-2.0); Eosinophils # 0.1 K/mm3 (0.0-0.4); Eosinophils % 1.5 % (0.1-12.0); Hematocrit 38.4 % (37.0-47.0); Hemoglobin 12.4 g/dL (12.2-16.2); Lymphocytes # 1.8 K/mm3 (0.7-4.5); Lymphocytes % 42.5 % (10-50); Mean Corpuscular HGB Conc 32.3 g/dL (31.8-35.4); Mean Corpuscular Hemoglobin 30.3 pg (27.0-31.2); Mean Platelet Volume 8.1 fl (7.4-10.4); Monocytes # 0.2 K/mm3 (0.1-1.0); Monocytes % 4.9 % (1.7-9.3); Neutrophils # 2.1 K/mm3 (1.8-7.8); Neutrophils % 50.6 % (37.0-80.0); Platelet Count 228 K/mm3 (142-424); Red Blood Count 4.08 M/mm3 (4.20-5.40); Red Cell Distribution Width 14.4 % (11.5-17.5); White Blood Count 4.2 K/mm3 (4.8-10.8)
[2023-12-22 19:39] LABS: INR 1.02 (0.9-1.1)
[2023-12-22 19:44] LABS: Alanine Aminotransferase 18 U/L (12-78); Albumin Level 4.1 g/dl (3.5-5.0); Albumin/Globulin Ratio 1.3 (1.1-1.8); Alkaline Phosphatase 72 U/L (38-126); Aspartate Amino Transferase 30 U/L (14-36); Bilirubin,Total 0.5 mg/dl (0.2-1.3); Calcium 9.9 mg/dl (8.4-10.2); Chloride 102 mmol/L (98-107); Globulin 3.1 g/dL (1.3-3.2); Glucose 95 mg/dl (74-100); Potassium 3.8 mmoL/L (3.5-5.1); Sodium 138 mmol/L (136-145); Total Protein,Serum 7.2 g/dl (6.3-8.2)
[2023-12-22 19:45] LABS: Anion Gap 9.8 mEq/L (5-15); Blood Urea Nitrogen 9 mg/dl (7-17); Carbon Dioxide 30 mmol/L (22.0-30.0); Estimated Glomerular Filt Rate 82 ml/min (>60); GFR (African American) 99 ML/MIN (>60)
== END 2023-12-22 23:59 | disposition home or self-care (01) ==
PROVIDERS: PCP Nurse Practitioner Family; Visit Provider Nurse Practitioner Family
DX: B18.2 Chronic viral hepatitis C (principal)
CPT/HCPCS: 36415; 80053; 81025; 85025; 85610; 87522

== ENCOUNTER 2024-08-15 16:56 | Emergency (ER) | payer OTHER, SELFPAY ==
[2024-08-15 17:10] VITALS: BP 129/74; PULSE 89; RESP 23; TEMP 37.2; O2SAT 100; BMI 27.3
--- NOTE | 2024-08-15 17:16 | ED_ITS ---
Discharge Plan Disposition Patient Disposition: Home, Self-Care Condition: Good Prescriptions Prescriptions: New azithromycin [Zithromax] 250 mg tablet 250 mg PO UD DOSE PK Qty: 6 0RF Rx Instructions: Take two (2) tablets today, then one (1) tablet days #2 thru #5 benzonatate 100 mg capsule 100 mg PO TIDP PRN (Reason: Cough) Qty: 30 0RF polymyxin B sulf-trimethoprim 10,000 unit- 1 mg/mL drops 1 drp Eye-Both Q3H 7 Days Qty: 10 0RF Rx Instructions: while awake; do not exceed 6 doses in 24 hours methylprednisolone 4 mg Tablets,Dose Pack 4 mg PO DIRECTED 6 Days Qty: 21 0RF Rx Instructions: Take 1 pack as directed for 6 days No Action docusate sodium 100 mg capsule 200 mg PO DAILY Patient Comments: TAKE 2 CAPSULES 1 TIME EACH DAY medroxyprogesterone 150 mg/mL syringe 150 mg IM ONCE Patient Comments: INJECT 1 ML INTO A MUSCLE EVERY 3 MONTHS Sublocade 100 mg/0.5 mL solution, extended rel syringe 100 mg SQ MONTHLY Referrals Follow up/Referrals: Esequiel Barajas MD [Primary Care Provider] - See instructions Activity Restrictions/Add. Instructions Additional Instructions/Restrictions: Drink plenty of fluids. Take tylenol or ibuprofen for pain or fever. Take the medications as directed. Follow up with your regular doctor. GO TO THE ER FOR ANY WORSENING SYMPTOMS Clinical Impressions Clinical Impression: Laryngitis, Bronchitis Instructions Patient Instructions: How to Put in Eye Drops Print Language Print Language: Uzbek Discharge ED Provider: Romeo Simmons [facility] General Stated complaint: loss of voice eye swelling Time Seen by Provider: 08/15/24 17:16 History of Present Illness Provider Complaint: She states that for the past 2 weeks she has had a productive cough. Over the past few days she has developed sinus congestion, puffiness below both her eyes, and a sore throat. Related Data Home Medications ?Medication ?Instructions ?Recorded ?Confirmed buprenorphine 100 mg/0.5 mL 100 mg SQ MONTHLY 08/15/24 08/15/24 solution,exten.rel.subcutaneous syringe (Sublocade) docusate sodium 100 mg capsule 200 mg PO DAILY 08/15/24 08/15/24 medroxyprogesterone 150 mg/mL 150 mg IM ONCE 08/15/24 08/15/24 intramuscular syringe Previous Rx's ?Medication ?Instructions ?Recorded azithromycin 250 mg tablet 250 mg PO UD DOSE PK #6 tabs 08/15/24 (Zithromax) benzonatate 100 mg capsule 100 mg PO TIDP PRN Cough #30 caps 08/15/24 methylprednisolone 4 mg tablets in 4 mg PO DIRECTED 6 days #21 tabs 08/15/24 a dose pack polymyxin B sulfate 10,000 1 drp Eye-Both Q3H 7 days #10 mL 08/15/24 unit-trimethoprim 1 mg/mL eye drops Allergies Allergy/AdvReac Type Severity Reaction Status Date / Time cefaclor (From [facility]) Allergy Unknown Verified 07/24/24 12:57 PFSH PFS Disclaimer: The information contained in this section may have been updated after the patient was seen, as this information can be updated by other users. Medical History Heroin use affecting Methamphetamine use Preeclampsia Acute on chronic blood loss anemia Tobacco use affecting , antepartum Hepatitis C labor 36 weeks gestation of 35 weeks gestation of Viral syndrome Thyroid goiter Surgical History S/P section Previous section x 2 H/O thyroidectomy partial Family History Other No significant family history Social History Smoking Status: Current every day smoker tobacco type: cigarettes packs per day: 1 second hand exposure: Yes alcohol intake: never substance use type: former substance user current occupational status: unemployed Travel in the last 8 weeks: None household members: significant other housing: house marital status: single current occupation: [employer] caffeine: Yes Have you lived/traveled outside [place] in past 30 days?: No Contact w/someone who lives/traveled outside US past 30 days?: No Exposure to someone with infectious disease in past 14 days?: No Do you have a fever (greater than 100.4 F or 38 C)?: No Have you tested positive for COVID-19: No Exposed to someone with COVID-19 in past 14 days?: No Do you have a sore throat?: Yes Do you have a cough?: Yes Do you have any weakness?: No Do you have any diarrhea?: No Are you experiencing any unusual bleeding?: No Do you have any muscle aches/pain?: No Do you have any abdominal pain?: No Are you experiencing loss of taste or smell?: No ROS Obtained: Yes All systems reviewed & no additional complaints except as documented Constitutional Constitutional: Reports poor appetite Eyes Eyes: Denies change in vision and Reports eye discharge ENT Ears, Nose, Mouth, and Throat: Reports as per HPI Cardiovascular Cardiovascular: Reports system reviewed and no additional complaints, except as documented and Denies chest pain Respiratory Respiratory: Denies shortness of breath, Reports chest congestion, Reports cough, Denies stridor and Denies wheezing Gastrointestinal Gastrointestingal: Reports system reviewed and no additional complaints, except as documented; Denies abdominal pain, diarrhea or vomiting Musculoskeletal Musculoskeletal: Reports system reviewed and no additional complaints, except as documented and Denies arthralgias Integumentary/Breasts Skin/Breast: Reports system reviewed and no additional complaints, except as documented and Denies rash Neurologic Neurologic: Denies paresthesias Allergic/Immunologic Allergic/Immunologic: Denies wheezing Physical Exam General General appearance: alert and in no apparent distress Head Head exam: atraumatic, normocephalic and normal inspection Eye Eye exam: Present PERRL, EOMI, conjunctival redness, conjunctival injection and discharge ENT ENT exam: Present mucous membranes moist and normal external ear exam Expanded ENT Exam TM/Canal exam: Bilateral TM: erythema and bulging Nose exam: Absent sinus tenderness Mouth exam: Present normal external inspection; Absent drooling Teeth exam: Present normal inspection Throat exam: Present tonsillar erythema, tonsillomegaly and tonsillar exudate Neck Neck exam: Present normal inspection, full ROM and trachea midline; Absent tenderness, meningismus or lymphadenopathy Chest Chest inspection: Present normal inspection and symmetric chest wall rise; Absent tenderness Respiratory Respiratory exam: Present normal lung sounds bilaterally; Absent respiratory distress, wheezes, stridor or accessory muscle use Cardiovascular Cardiovascular exam: Present regular rate and normal rhythm; Absent systolic murmur or diastolic murmur Abdominal Exam Abdominal exam: Present soft and normal bowel sounds; Absent distention, tenderness, guarding, rebound or rigidity Extremities Exam Extremities exam: Present normal inspection and normal capillary refill; Absent calf tenderness Back Exam Back exam: Present normal inspection and full ROM; Absent tenderness, CVA tenderness (R) or CVA tenderness (L) Neurological Exam Neurological exam: Present alert, oriented X3 and CN II-XII intact Psychiatric Psychiatric exam: Present normal affect and normal mood Skin Skin exam: Present warm, dry, intact and normal color Medical Decision Making Medical Records Medical records reviewed: No I reviewed the patient's medical records. Screening: Per USPSTF and CDC recommendations, given the prevalence of disease in our region, it is our hospital?s policy to screen for HIV and viral Hepatitis for all patients aged 18 and over and those with ongoing risk factors. Siva Inquiry Pt receiving controlled substance: No
[2024-08-15 17:34] VITALS: BP 129/74; PULSE 89; RESP 23; TEMP 37.2; O2SAT 100
== END 2024-08-15 17:36 | disposition home or self-care (01) ==
PROVIDERS: Emergency Provider Nurse Practitioner Family; PCP Family Medicine
DX: J40 Bronchitis, not specified as acute or chronic (principal); J04.0 Acute laryngitis
CPT/HCPCS: 99213; G0381

== ENCOUNTER 2024-09-08 18:18 | Emergency (ER) | payer OTHER, SELFPAY ==
[2024-09-08 18:19] VITALS: BP 127/83; PULSE 77; RESP 18; TEMP 37.1; O2SAT 98; BMI 27.2
[2024-09-08 19:30] VITALS: BP 111/80; PULSE 67; O2SAT 99
--- NOTE | 2024-09-08 19:57 | ED_ITS ---
Discharge Plan Disposition Patient Disposition: Home, Self-Care Prescriptions Prescriptions: New prednisone 20 mg tablet 40 mg PO DAILY 3 Days Qty: 6 0RF sulfamethoxazole-trimethoprim [Bactrim DS] 800-160 mg tablet 1 tab PO BID Qty: 20 0RF No Action docusate sodium 100 mg capsule 200 mg PO DAILY Patient Comments: TAKE 2 CAPSULES 1 TIME EACH DAY medroxyprogesterone 150 mg/mL syringe 150 mg IM ONCE Patient Comments: INJECT 1 ML INTO A MUSCLE EVERY 3 MONTHS Sublocade 100 mg/0.5 mL solution, extended rel syringe 100 mg SQ MONTHLY azithromycin [Zithromax] 250 mg tablet 250 mg PO UD DOSE PK Qty: 6 0RF Rx Instructions: Take two (2) tablets today, then one (1) tablet days #2 thru #5 benzonatate 100 mg capsule 100 mg PO TIDP PRN (Reason: Cough) Qty: 30 0RF polymyxin B sulf-trimethoprim 10,000 unit- 1 mg/mL drops 1 drp Eye-Both Q3H 7 Days Qty: 10 0RF Rx Instructions: while awake; do not exceed 6 doses in 24 hours methylprednisolone 4 mg Tablets,Dose Pack 4 mg PO DIRECTED 6 Days Qty: 21 0RF Rx Instructions: Take 1 pack as directed for 6 days Referrals Follow up/Referrals: Esequiel Barajas MD [Primary Care Provider] - See instructions Activity Restrictions/Add. Instructions Additional Instructions/Restrictions: At this time it was felt you are safe to be discharged home. If new or worsening symptoms please do not hesitate to return the emergency department. Please take your medications as prescribed and take Benadryl on top of this for the swelling and itching. Clinical Impressions Clinical Impression: Impetigo, Allergic reaction Instructions Patient Instructions: DI for Skin Abscess Print Language Print Language: Vietnamese Discharge ED Provider: Jose Friedman General Adult HPI General Chief complaint: Skin/Abscess/Foreign Body Stated complaint: bilateral eye irriation Time Seen by Provider: 09/08/24 19:39 Mode of Arrival: Ambulatory Source of Information: Patient Limitations: No Limitations Description of Symptoms (Recalled from ER Triage Doc. by RN): Pt presents with c/o intermittent swelling and redness that has been developing to bilateral eyes x 2-3 weeks. Pt states she has been seen at urgent care and has been on antibiotics/steroids. History of Present Illness HPI narrative: Patient is a 34-year-old female with no pertinent past medical history presents to the emergency department for evaluation of periorbital swelling. History is obtained by patient at bedside. 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 Since then she had intermittent resurgence of the swelling and in addition to that where she has been rubbing it it has opened up and has yellow crust. She has no visual changes, no headache, no retro-ocular pain, no difficulty ranging her neck, no other acute complaints at this time. No new medications or exposures otherwise Related Data Home Medications ?Medication ?Instructions ?Recorded ?Confirmed buprenorphine 100 mg/0.5 mL 100 mg SQ MONTHLY 08/15/24 08/15/24 solution,exten.rel.subcutaneous syringe (Sublocade) docusate sodium 100 mg capsule 200 mg PO DAILY 08/15/24 08/15/24 medroxyprogesterone 150 mg/mL 150 mg IM ONCE 08/15/24 08/15/24 intramuscular syringe Previous Rx's ?Medication ?Instructions ?Recorded azithromycin 250 mg tablet 250 mg PO UD DOSE PK #6 tabs 08/15/24 (Zithromax) benzonatate 100 mg capsule 100 mg PO TIDP PRN Cough #30 caps 08/15/24 methylprednisolone 4 mg tablets in 4 mg PO DIRECTED 6 days #21 tabs 08/15/24 a dose pack polymyxin B sulfate 10,000 1 drp Eye-Both Q3H 7 days #10 mL 08/15/24 unit-trimethoprim 1 mg/mL eye drops prednisone 20 mg tablet 40 mg (2 x 20 mg) PO DAILY 09/08/24 swelling 3 days #6 tabs sulfamethoxazole 800 1 tab PO BID impetigo #20 tabs 09/08/24 mg-trimethoprim 160 mg tablet (Bactrim DS) Allergies Allergy/AdvReac Type Severity Reaction Status Date / Time cefaclor (From [facility]) Allergy Unknown Verified 07/24/24 12:57 [facility] Disclaimer: The information contained in this section may have been updated after the patient was seen, as this information can be updated by other users. Medical History Heroin use affecting Methamphetamine use Preeclampsia Acute on chronic blood loss anemia Tobacco use affecting , antepartum Hepatitis C labor 36 weeks gestation of 35 weeks gestation of Viral syndrome Thyroid goiter Surgical History S/P section Previous section x 2 H/O thyroidectomy partial Family History Other No significant family history Social History Smoking Status: Never smoker second hand exposure: Yes alcohol intake: never substance use type: former substance user current occupational status: unemployed Travel in the last 8 weeks: None household members: significant other housing: house marital status: single current occupation: [employer] caffeine: Yes Have you lived/traveled outside US in past 30 days?: No Contact w/someone who lives/traveled outside US past 30 days?: No Exposure to someone with infectious disease in past 14 days?: No Do you have a fever (greater than 100.4 F or 38 C)?: No Have you tested positive for COVID-19: No Exposed to someone with COVID-19 in past 14 days?: No Do you have a sore throat?: No Do you have a cough?: No Do you have any weakness?: No Do you have any diarrhea?: No Are you experiencing any unusual bleeding?: No Do you have any muscle aches/pain?: No Do you have any abdominal pain?: No Are you experiencing loss of taste or smell?: No Other Medical History Have you received the Flu Vaccine for this season: No Have you received the Pneumonia Vaccine: No ROS Obtained: Yes Systems reviewed as appropriate & no additional complaints except as documented Physical Exam General General appearance: alert and in no apparent distress Head Head exam: atraumatic and normocephalic Eye Eye exam: Present PERRL, EOMI and other (Periorbital erythema with crusting bilaterally, no pain exraocular movements.); Absent conjunctival redness ENT ENT exam: Present mucous membranes moist Neck Neck exam: Present normal inspection Chest Chest inspection: Present normal inspection and symmetric chest wall rise Respiratory Respiratory exam: Absent respiratory distress Cardiovascular Cardiovascular exam: Present regular rate and normal rhythm Abdominal Exam Abdominal exam: Present soft Extremities Exam Extremities exam: Present normal inspection Neurological Exam Neurological exam: Present alert and CN II-XII intact; Absent motor sensory deficit Psychiatric Psychiatric exam: Present normal affect Skin Skin exam: Present warm and dry Medical Decision Making Medical Records Screening: Per USPSTF and CDC recommendations, given the prevalence of disease in our region, it is our hospital?s policy to screen for HIV and viral Hepatitis for all patients aged 18 and over and those with ongoing risk factors. Siva Inquiry Pt receiving controlled substance: No Vital Signs: 09/08/24 18:19 09/08/24 19:30 Temperature 98.7 F Temperature Source Oral Pulse Rate 67 Pulse Rate [Right] 77 Respiratory Rate 18 Blood Pressure 111/80 Blood Pressure [Right Arm] 127/83 Blood Pressure Mean 89 Blood Pressure Mean [Right Arm] 97 Blood Pressure Source [Right Arm] Automatic Cuff Blood Pressure Position [Right Arm] Sitting 02 Sat by Pulse Oximetry 98 99 Oxygen Delivery Method Room Air Orders (Tests/Meds): ED MEDICATIONS Discontinued Medications Generic Name Dose Route Start Last Admin Trade Name Freq PRN Reason Stop Dose Admin Diphenhydramine HCl 50 mg 09/08/24 19:49 Diphenhydramine 50mg Capsule PO 09/08/24 19:50 ONCE ONE Prednisone 40 mg 09/08/24 19:49 Prednisone 20mg Tab PO 09/08/24 19:50 ONCE ONE Trimethoprim/Sulfamethoxazole 1 each 09/08/24 19:49 Sulfa/Trimethoprim 1 Tablet PO 09/08/24 19:50 ONCE ONE Medical Decision Narrative: In summary patient is a 34-year-old female with past medical history described above presents emergency department for evaluation of periorbital edema and erythema and crusting. Patient is hemodynamically stable nontoxic-appearing arrival, afebrile. Episodic nature of this occurring at work points towards allergic reaction in nature however with yellow crusting and concern for superimposed impetigo. She has no painful extraocular movements and nonfocal exam otherwise. No concern for orbital cellulitis. Given this workable labs and imaging was considered but will be deferred. She does not meet criteria for anaphylaxis and an initial intervention will be conducted with prednisone, Benadryl, Bactrim. Patient is appropriate for discharge at this time will be discharged with a course of prednisone and Bactrim and was given return precautions and verbalized understanding Critical Care Critical Care Time Critical Care Time: No
[2024-09-08] MEDS: SULFA/TRIMETHOPRIM 1 TABLET 1 EACH PO (20:08)
[2024-09-08] MEDS: diphenhydrAMINE 50MG CAPSULE 50 MG PO (20:08)
[2024-09-08] MEDS: predniSONE 20MG TAB 40 MG PO (20:08)
[2024-09-08 20:24] VITALS: BP 129/84; PULSE 72; RESP 20; TEMP 36.6; O2SAT 97
== END 2024-09-08 20:15 | disposition home or self-care (01) ==
PROVIDERS: Emergency Provider Emergency Medicine; PCP Family Medicine
DX: L01.00 Impetigo, unspecified (principal); T78.40XA Allergy, unspecified, initial encounter; H05.223 Edema of bilateral orbit
CPT/HCPCS: 99283

== ENCOUNTER 2024-09-29 18:00 | Outpatient (CLI) | payer OTHER, SELFPAY ==
[2024-09-29 18:09] LABS: Anti-Centromere B Antibodies ND; Anti-DNA (DS) Ab Qn ND; Anti-Jo-1 ND; Antichromatin Antibodies ND; Antiscleroderma-70 Antibodies ND; RNP Antibodies ND; Sjogren's Anti-SS-A ND; Sjogren's Anti-SS-B ND
[2024-09-29 18:34] LABS: Alanine Aminotransferase 22 U/L (12-78); Albumin Level 4.7 g/dl (3.5-5.0); Albumin/Globulin Ratio 1.7 (1.1-1.8); Alkaline Phosphatase 59 U/L (38-126); Anion Gap 8.6 mEq/L (5-15); Aspartate Amino Transferase 35 U/L (14-36); Blood Urea Nitrogen 5 mg/dl (7-17); Calcium 9.1 mg/dl (8.4-10.2); Carbon Dioxide 27 mmol/L (22.0-30.0); Chloride 106 mmol/L (98-107); Estimated Glomerular Filt Rate 81 ml/min (>60); GFR (African American) 98 ML/MIN (>60); Globulin 2.8 g/dL (1.3-3.2); Glucose 95 mg/dl (74-100); Potassium 3.6 mmoL/L (3.5-5.1); Sodium 138 mmol/L (136-145); Total Protein,Serum 7.5 g/dl (6.3-8.2)
[2024-09-29 18:39] LABS: Bilirubin,Total 0.1 mg/dl (0.2-1.3); C-Reactive Protein 0.4 mg/L (0-4)
[2024-09-29 18:51] LABS: T4 (Thyroxine) 9.7 ug/dl (5.53-11.0)
[2024-09-29 19:04] LABS: Thyroid Stimulating Hormone 2.35 uIU/mL (0.465-4.68)
[2024-09-29 19:29] LABS: Erythrocyte Sedimentation Rate 20 mm/hr (0-20)
[2024-09-29 19:32] LABS: Basophils % 0.5 % (0.1-2.0); Eosinophils # 0.1 K/mm3 (0.0-0.4); Eosinophils % 1.7 % (0.1-12.0); Hematocrit 34.9 % (37.0-47.0); Hemoglobin 11.7 g/dL (12.2-16.2); Lymphocytes # 2.3 K/mm3 (0.7-4.5); Lymphocytes % 54.4 % (10-50); Mean Corpuscular HGB Conc 33.5 g/dL (31.8-35.4); Mean Corpuscular Hemoglobin 29.6 pg (27.0-31.2); Mean Corpuscular Volume 88.4 fl (81-99); Mean Platelet Volume 10.9 fl (7.4-10.4); Monocytes # 0.2 K/mm3 (0.1-1.0); Neutrophils # 1.6 K/mm3 (1.8-7.8); Neutrophils % 38.4 % (37.0-80.0); Platelet Count 210 K/mm3 (142-424); Red Blood Count 3.95 M/mm3 (4.20-5.40); Red Cell Distribution Width 12.2 % (11.5-17.5); White Blood Count 4.2 K/mm3 (4.8-10.8)
[2024-09-29 19:47] LABS: MANUAL DIFFERENTIAL MANUAL DIFFERENTIAL (MANUAL DIFF)
[2024-09-29 22:26] LABS: Eosinophils % 1 % (0-3); Lymphocytes % 52 % (10-50); Monocytes % 2 % (2-9); Neutrophils % 45 % (42-76); Total Cells Counted 100
[2024-09-29 22:27] LABS: Platelet Estimate Normal; RBC Morphology Normal
[2024-10-01 15:10] LABS: Antinuclear Antibodies (ANA) Negative (Negative)
== END 2024-09-29 23:59 | disposition home or self-care (01) ==
LOC: LAB 18:02
PROVIDERS: PCP Family Medicine; Visit Provider Family Medicine
DX: R21 Rash and other nonspecific skin eruption (principal); H57.89 Other specified disorders of eye and adnexa
CPT/HCPCS: 36415; 80053; 84436; 84443; 85007; 85025; 85027; 85651; 86038; 86140; 86225; 86235

== ENCOUNTER 2025-03-12 18:17 | Emergency (ER) | payer OTHER, SELFPAY ==
[2025-03-12 18:19] VITALS: BP 137/92; PULSE 89; RESP 18; TEMP 37.1; O2SAT 100; BMI 23.6
--- NOTE | 2025-03-12 18:31 | XR_ITS ---
PROCEDURE INFORMATION: Exam: XR Right Hand Exam date and time: 03/12/2025 6:59 PM Age: 34 years old Clinical indication: Injury or trauma; Other: Cut hand while washing dishes; Laceration; Right; Additional info: Laceration 2nd MCP, broken glass TECHNIQUE: Imaging protocol: Radiologic exam of the right hand. Views: 3 or more views. COMPARISON: No relevant prior studies available. FINDINGS: Bones/joints: Mild 2nd MCP soft tissue swelling without acute osseous abnormality. Soft tissues: No radiopaque foreign bodies identified at the soft tissues of the right 2nd MCP joint. IMPRESSION: 1. Mild 2nd MCP soft tissue swelling without acute osseous abnormality. 2. No radiopaque foreign bodies identified at the soft tissues of the right 2nd MCP joint.
--- NOTE | 2025-03-12 18:31 | PC.NURSE ---
DR NVAAS AT BEDSIDE
--- OUTSIDE RECORDS SUMMARY | 2025-03-12 18:32 | XMS_ITS | Clinical Summary ---
Author Organization Healthcare Address [address] [place] [address] Care Team Providers Care [facility] C[facility] Hand Name Role Phone Pcp, No Primary Care Provider Unavailabl e Allergies Active Allergy Reactions Criticality Noted Date Comments Cefaclor Hives,Itching,Rash,Swelling High 07/26/20 16 Medications Sublocade 300 MG/1.5ML solution prefilled syringe Inject 1.5 mL (300 mg) under the skin every 30 (thirty) days. 08/30/2023 Active Sleep Aid 25 MG tablet Take 1 tablet (25 mg) by mouth at night if needed. 08/09/2023 Active hydrOXYzine pamoate (Vistaril) 25 MG capsule Take 1 capsule (25 mg) by mouth every night. 07/31/2023 Active prazosin (Minipress) 1 MG capsule Take 1 capsule (1 mg) by mouth every night. 09/11/2023 Active Active Problems Problem Noted Date Diagnosed Date Thyroid cancer 08/08/2023 Encounter for routine follow-up 08/08 H/O section 08/06/2023 delivery, delivered 08/06/2023 Methamphetamine use disorder, severe 08/06/2023 Chronic hepatitis C without hepatic coma 024 Tobacco smoker, 1 pack of cigarettes or less per day 08/06/2023 H/O pre-eclampsia 08/06/2023 History of partial thyroidectomy 08/06/2023 Severe benzodiazepine use disorder in sustained remission 07/29/2016 Tobacco use disorder, continuous 07/29/2016 Resolved Problems Problem Noted Date Diagnosed Date Resolved Date Thyroid goiter 08/08/2023 08/08/2023 Immunizations Immunization Administration Dates Next Due Hep A, Adult 03/04/2020,09/06/2018 Novel [id number], all formulations 2008 Family History Medical History Relation Name Comments Drug abuse Father Brent Sharp Stroke Maternal Grandmother Bobbi Peña Alcohol abuse Mother Cecy Sharp Drug abuse Mother Cecy Sharp Hepatitis, C Virus Mother Ccey Sharp Mental illness Mother Cecy Sharp Miscarriages / Stillbirths Mother Cecy Sharp Stroke Paternal Grandmother Julia Sharp Relation Name Status Comments Father Brent Sharp Maternal Grandmother Bobbi Peña Mother Cecy Sharp Paternal Grandmother Julia Sharp Social History Tobacco Use Types Packs/Day Years Used Date Smoking Tobacco: Every Day Cigarettes 0.5 20 Smokeless Tobacco: Never Tobacco Cessation:Ready to Q uit: Not Asked; Counseling Given: Not Answered Alcohol Use Standard Drinks/Week Comments Not Currently 0 (1 standard drink = 0.6 oz pur e alcohol) PHQ-2 Answer Date Recorded Patient Health Questionnaire-2 Score 0 12/17/2023 Harrison Depression Scale Answer Date Recorded Harrison Depression Scale Total 0 08/08/2023 The thought of harming myself has occurred to me . Never 08/08/2023 Comments No Sex and Gender Information Value Date Recorded Sex Assigned at Female 08/02/2023 3:25 PM EST Legal Sex Female 7:53 PM EDT Gender Identity Not on file Sexual Orientation Not on file Last Filed Vital Signs Vital Sign Reading Time Taken Comments Blood Pressure 119/73 08/08/2023 8:29 AM EST Pulse 103 08/08/2023 8:29 AM EST Temperature 35.9 C (96.6 F) 08/08/2023 8:29 AM EST Respiratory Rate 18 08/08/2023 8:29 AM EST Oxygen Saturation 98% 08/08/2023 8:29 AM EST Inhaled Oxygen Concentration - - Weight 79.8 kg (176 lb) 12/17/2023 9:29 AM EDT Height 172.7 cm (5' 8 ) 12/17/2023 9:29 AM EDT Body Mass Index 26.76 12/17/2023 9:29 AM EDT Plan of Treatment Health Maintenance Due Date Last Done Comments [facility]-/Child/Adol SDOH Screenings 1988 [id number] Vaccine (#1) 1993 [facility]- SDOH Screenings 2006 [facility]-Adult SDOH Screenings 2006 [facility]-DTaP,Tdap,and Td Vaccine s (1 - Tdap) 2007 [facility]-Hepatitis B Vaccines (1 of 3 - 19+ 3-dose series) 2007 [facility]-Pneumococcal Vaccine: Pediatrics (0 to 5 Years) and At-Risk Patients (6 to 49 Years) (1 of 2 - PCV) 2007 [facility]-Zoster Vaccines (1 of 2) 2007 [facility]-Varicella Vaccines (1 of 2 - 13+ 2-dose series) 06/22/2009 [facility]-Pap Smear 2009 HPV Vaccines (1 - Risk 3-dos e SCDM series) 2015 [facility]-Cervical Cancer Screening 2018 [facility]-HPV/Cotest 2018 [facility]-Depression Screening 12/16/2024 024, 08/08/2023 [facility]-Influenza Vaccine (#1) 2025 05/25/2009 [facility]-Hepatitis A Vaccines Completed 020, 09/06/2018 [facility]-HIV Screening Completed 08/08/2023 [facility]-Obesity Intervention Completed 024, 09/13/2023, 08/08/2023 [facility]-HIB Vaccines Aged Out No longer e ligible based on patient's age to complete this topic [facility]-IPV Vaccines Aged Out No longer e ligible based on patient's age to complete this topic [facility]-Rotavirus Vaccines Aged Out No lo nger eligible based on patient's age to complete this topic Procedures Procedure Name Priority Date/Time Associated Diagnosis Comments HIV 1/2 ANTIBODY/ANTIGEN SCREEN WITH REFLEX TO HIV I/II DIFFERENTIATION Routine 08/08/2023 9:32 AM EST Hepatitis C virus infection without hepatic coma, unspecified chronicity from Last 3 Months or Most Recently Relevant to Health Maintenance Results * HIV 1 & 2 Antibody/Antigen Screen (08/08/2023 9:32 AM EST) HIV 1 & 2 Antibody/Antigen Screen Non Reactive Non Reactive 08/08/2023 11:36 AM EST [facility] Comment:Screening for HIV 1 & 2 antibodies, and P24 antigen is NONREACTIVE. No confirmatory testing is required. Blood Venous blood specimen / Unknown Venipuncture / Unknown 08/08/2023 9:32 AM EST 08/08/2023 9:33 AM EST Martha Moses APRN LAB BLOOD ORDERABLES [facility]o rajput Result [facility] [address] [place] [address] from Last 3 Months or Most Recently Relevant to Health Maintenance Insurance [employer] Care Teams Canvas C[employer] Hand Relationship Specialty Start Date End Date Pcp, Marcia [address] [place] [address] PCP - General Family Medicine 09/19/23
[2025-03-12 18:33] VITALS: BP 134/86; PULSE 85; O2SAT 100
--- NOTE | 2025-03-12 18:38 | HMH.EDGENADL ---
Discharge Plan Disposition Patient Disposition: Home, Self-Care Prescriptions Prescriptions: No Action triamcinolone acetonide 0.1 % cream 1 applic topical BID Qty: 15 1RF medroxyprogesterone 150 mg/mL syringe See Rx Instructions .ROUTE .COMPLEX Qty: 1 2RF Dose Instruction: INJECT 1 ML INTO A MUSCLE EVERY 3 MONTHS Rx Instructions: INJECT 1 ML INTO A MUSCLE EVERY 3 MONTHS docusate sodium 100 mg capsule 200 mg PO DAILY Patient Comments: TAKE 2 CAPSULES 1 TIME EACH DAY Sublocade 100 mg/0.5 mL solution, extended rel syringe 100 mg SQ MONTHLY Referrals Follow up/Referrals: Esequiel Barajas MD [Primary Care Provider, Internal Medicine] - See instructions Activity Restrictions/Add. Instructions Additional Instructions/Restrictions: At this time it was felt you are safe to be discharged home. If new or worsening symptoms please do not hesitate to return the emergency department. Please apply nonstick dressing followed by your splint. Is okay to take your splint off and bend fingertip and first knuckle, it is okay to bend the knuckle with the sutures a little bit but do not fully bend it as it will split the wound open. Do not submerge your hand in water is okay to shower. Please follow-up with your family doctor in 10 to 14 days to see when they are ready to come out. Clinical Impressions Clinical Impression: Laceration of hand Instructions Patient Instructions: DI for Laceration Repair Print Language Print Language: Uzbek Discharge ED Provider: Jose Friedman General Adult HPI General Chief complaint: Wound/Laceration Stated complaint: ao 8-14 RIGHT HAND CUT Time Seen by Provider: 03/12/25 18:21 Mode of Arrival: Ambulatory Source of Information: Patient Description of Symptoms (Recalled from ER Triage Doc. by RN): LACERATION TO RIGHT HAND/INDEX FINGER, GLASS BROKE WHILE WASHING DISHES. History of Present Illness HPI narrative: Patient is a 34-year-old female who presents emerged part for evaluation of her right hand. Patient broke a glass while washing dishes causing a laceration over her dorsal radial first MTP area. Tdap not up-to-date. No other traumatic injury sustained. No other acute complaints at this time. Please note that above description of symptoms, in this electronic medical record under categorization of recalled from ER triage doctor by RN are reflective of an initial nursing assessment, however, is not reflective of my full history and physical exam that was personally taken and clarified. Consequentially, this preceding description of symptoms, which may include the patient's categorized chief complaint in the EMR, do not reflect my personal clinical impression, and the ultimate description of history of present illness and patient stated complaints should be deferred to this section of the note. Unless stated otherwise or congruent with this section of the note, additional signs, symptoms, or incongruence should be interpreted as inaccurate with my clinical impression. Related Data Home Medications ?Medication ?Instructions ?Recorded ?Confirmed buprenorphine 100 mg/0.5 mL 100 mg SQ MONTHLY 08/15/24 09/29/24 solution,exten.rel.subcutaneous syringe (Sublocade) docusate sodium 100 mg capsule 200 mg PO DAILY 08/15/24 09/29/24 Previous Rx's ?Medication ?Instructions ?Recorded medroxyprogesterone 150 mg/mL See Rx Instructions .Route 02/02/25 intramuscular syringe .COMPLEX #1 mL triamcinolone acetonide 0.1 % 1 applic topical BID rash #15 grams 02/12/25 topical cream Allergies Allergy/AdvReac Type Severity Reaction Status Date / Time cefaclor (From [facility]) Allergy Unknown Verified 09/29/24 16:01 [facility] Disclaimer: The information contained in this section may have been updated after the patient was seen, as this information can be updated by other users. Medical History Heroin use affecting Methamphetamine use Preeclampsia Acute on chronic blood loss anemia Tobacco use affecting , antepartum Hepatitis C labor 36 weeks gestation of 35 weeks gestation of Viral syndrome Thyroid goiter Surgical History S/P section Previous section x 2 H/O thyroidectomy partial Family History Other No significant family history Social History Smoking Status: Current every day smoker tobacco type: cigarettes packs per day: 1 second hand exposure: Yes alcohol intake: never substance use type: former substance user current occupational status: unemployed Travel in the last 8 weeks?: None household members: significant other housing: house marital status: single current occupation: [employer] caffeine: Yes Have you lived/traveled outside [place] in past 30 days?: No Contact w/someone who lives/traveled outside US past 30 days?: No Exposure to someone with infectious disease in past 14 days?: No Do you have a fever (greater than 100.4 F or 38 C)?: No Have you tested positive for COVID-19?: No Exposed to someone with COVID-19 in past 14 days?: No Do you have a sore throat?: No Do you have a cough?: No Do you have any weakness?: No Do you have any diarrhea?: No Are you experiencing any unusual bleeding?: Yes Do you have any muscle aches/pain?: No Do you have any abdominal pain?: No Are you experiencing loss of taste or smell?: No Other Medical History Have you received the Flu Vaccine for this season: No Have you received the Pneumonia Vaccine: No ROS Obtained: Yes Systems reviewed as appropriate & no additional complaints except as documented Physical Exam General General appearance: alert Comment: Appearing uncomfortable in bed Head Head exam: atraumatic and normocephalic Eye Eye exam: Present PERRL and EOMI ENT ENT exam: Present mucous membranes moist Neck Neck exam: Present normal inspection Chest Chest inspection: Present normal inspection and symmetric chest wall rise Respiratory Respiratory exam: Present normal lung sounds bilaterally; Absent respiratory distress Cardiovascular Cardiovascular exam: Present regular rate and normal rhythm Abdominal Exam Abdominal exam: Present soft Extremities Exam Extremities exam: Present other (3 cm curvilinear laceration over the dorsal radial aspect along the first metatarsal phalangeal area. Flexion extension of the MCP PIP and DIP joint preserved. Abduction and abduction at the MCP joint preserved. Distally neurovascularly intact.) Neurological Exam Neurological exam: Present alert Psychiatric Psychiatric exam: Present normal affect Skin Skin exam: Present warm and dry Medical Decision Making Medical Records Screening: Per USPSTF and CDC recommendations, given the prevalence of disease in our region, it is our hospital?s policy to screen for HIV and viral Hepatitis for all patients aged 18 and over and those with ongoing risk factors. Siva Inquiry Pt receiving controlled substance: No Vital Signs: 03/12/25 18:19 03/12/25 18:33 Temperature 98.8 F Temperature Source Oral Pulse Rate 85 Pulse Rate [Radial] 89 Respiratory Rate 18 Blood Pressure 134/86 Blood Pressure [Left Arm] 137/92 H Blood Pressure Mean [Left Arm] 107 Blood Pressure Source [Left Arm] Automatic Cuff Blood Pressure Position [Left Arm] Sitting 02 Sat by Pulse Oximetry 100 100 Oxygen Delivery Method Room Air Orders (Tests/Meds): ED MEDICATIONS Discontinued Medications Generic Name Dose Route Start Last Admin Trade Name Nasir PRN Reason Stop Dose Admin Lidocaine HCl 10 ml 03/12/25 18:33 03/12/25 18:44 Lidocaine 1% 30ml Pf Vial IJ 03/12/25 18:34 10 ml ONCE ONE Administration Tetanus/Reduced Diphtheria/Acell Pertussis 0.5 ml 03/12/25 18:33 03/12/25 18:55 Tet/Diphth/Pert-Adult 0.5ml Syringe IM 03/12/25 18:34 0.5 ml .ONCE ONE Administration ORDERS Category Date Time Status XR hand RT min 3V Stat Exams 03/12/25 18:31 Taken Medical Decision Narrative: In summary patient is a 34-year-old right handed female past medical history described above who presents emergency department for evaluation of a laceration over her right dorsal metacarpal phalangeal joint. Patient is hemodynamically stable nontoxic-appearing arrival, afebrile. Based on exam no concern for tendon involvement. Patient is distally neurovascularly intact as well. Tdap will be updated as last administration is unknown. Plain film be conducted for foreign body screening and wound will undergo primary repair. X-ray informally visualized by me no acute foreign body. Procedure: Procedure performed was laceration repair. Procedure performed by Jose Friedman. Lidocaine without epinephrine was infected in the wound, anesthesia achieved. Wound was cleaned with Hibiclens and sterile water, joint capsule is intact, examination. Site was first metatarsal phalangeal joint on the right dorsal radial side, laceration length was 3 cm curvilinear. 5-0 nylon sutures were used, number was 5 placed in simple interrupted fashion. Wound was dressed and splint was applied. Patient tolerated procedure well there were no immediate complications. Critical Care Critical Care Time Critical Care Time: No
[2025-03-12] MEDS: LIDOCAINE 1% 30ML PF VIAL 10 ML IJ (18:44)
[2025-03-12] MEDS: TET/DIPHTH/PERT-ADULT 0.5ML SYRINGE 0.5 ML IM (18:55)
--- NOTE | 2025-03-12 19:07 | PC.NURSE ---
Report received from Aristides ROCHA Pt awake alert and oriented Right hand soaking Bleeding controlled. Skin pink warm and dry Resp full and easy Speech clear and appropriate.
--- NOTE | 2025-03-12 19:19 | PC.NURSE ---
at bedside to repair laceration
[2025-03-12 19:42] VITALS: BP 114/67; PULSE 79; RESP 20; TEMP 36.7; O2SAT 99
--- NOTE | 2025-03-12 19:47 | PC.NURSE ---
this RN and DIMA Brush applied splint to right index finer per MD Mensah request. Pt tolerated well. and teaching given
[2025-03-12 19:48] VITALS: BP 134/86; PULSE 85; RESP 18; TEMP 37.1; O2SAT 100
== END 2025-03-12 19:49 | disposition home or self-care (01) ==
PROVIDERS: Emergency Provider Emergency Medicine; PCP Family Medicine
DX: S61.411A Laceration without foreign body of right hand, initial encounter (principal); W25.XXXA Contact with sharp glass, initial encounter
CPT/HCPCS: 12002; 73130; 90471; 90715; 99283; J2003